=== PATIENT | female | born 1985 | race African-American/Black ===

== ENCOUNTER 2020-06-22 06:44 | Emergency (ER) | payer OTHER, SELFPAY ==
--- NOTE | 2020-06-22 06:48 | ED.URI ---
HPI - URI/Sore Throat General Chief Complaint: Upper Respiratory Symptoms Stated Complaint: sob,cough Time Seen by Provider: 06/22/20 06:48 Source: patient Mode of arrival: ambulatory Limitations: no limitations History of Present Illness MD elicited complaint: fever, cough and rhinorrhea Pertinent past history: other (mom has COVID) Onset (ago): day(s) (4) Consistency: constant Severity: moderate Description of mucous: clear Able to tolerate fluids by mouth: Yes Exacerbating factors: nothing Relieving factors: nothing Context: sick contacts Associated symptoms: fever, chills, headache and cough Treatments prior to arrival: acetaminophen Related Data Previous Rx's Medication Instructions Recorded benzonatate [Tessalon Perles] 100 mg PO TID PRN #20 cap 06/22/20 ibuprofen 600 mg PO Q6H PRN #30 tab 06/22/20 ondansetron 4 mg PO Q8H PRN #20 tab 06/22/20 Allergies Allergy/AdvReac Type Severity Reaction Status Date / Time No Known Allergies Allergy Verified 06/22/20 06:58 Review of Systems Review of Systems: Constitutional : positive Fever, positive Chills, positive fatigue, positive Malaise ENT/Mouth : no sore throat, positive runny nose Eyes: No Discharge Cardiovascular : No Chest Pain, No SOB Respiratory : pos Cough, No Sputum Gastrointestinal : No Nausea, No Vomiting, No Diarrhea Genitourinary : No Dysuria, No Urinary Frequency Musculoskeletal : positive Myalgia Skin : No rash Neuro : pos Headache All other systems reviewed and are negative PMFSH Past Medical History Attestation statement: The following information was validated with the patient. Medical History No active medical problems Social History Social History (Updated 06/22/20 @ 07:12 by Alison Brown DO) Alcohol intake: never Smoking Status: Current every day smoker Smoked in Last 30 Days: Yes Use of substances other than those prescribed or required for medical reasons: No Advance Directives: No Advance Directives Information Provided: No Physical Exam Vital Signs: Vital Signs: Last Vital Signs Temp 98.1 F 06/22/20 06:54 Pulse 56 06/22/20 06:54 Resp 18 06/22/20 06:54 BP 137/65 06/22/20 06:54 Pulse Ox 100 06/22/20 07:12 Body Mass Index 43.5 Appearance: Alert. Oriented X3. No acute distress. Eyes: Pupils equal, round and reactive to light. ENT: Pharynx normal. Neck: Normal inspection. Neck supple. CVS: Normal heart rate and rhythm. Pulses normal. Respiratory: No respiratory distress. Breath sounds clear but dry persistent almost bronchospastic cough Abdomen: Soft and non-tender. Skin: Skin warm and dry. Normal skin color. Normal skin turgor. Extremities: No lower extremity edema. No calf ttp Neuro: Oriented X 3. No motor deficit. No sensory deficit. Course Course Course Narrative: negative COVID but given symptoms and exposure will treat as covid MDM - URI/Sore Throat MDM Narrative Medical decision making narrative: 34 yo female with known COVID exposure now with 4 days of URI, dry hacking cough, 100% on RA at this time will obtain CXR, COVID swab/flu swab, anti tussives, given INH for bronchospastic cough, patient given expectant management at this time for likely COVID Lab Data Labs: Lab Results 06/22/20 Range/Units 07:10 Coronavirus (PCR) NEGATIVE (Negative) Influenza Type A (PCR) NEGATIVE (Negative) Influenza Type B (PCR) NEGATIVE (Negative) RSV RNA Qual (PCR) NEGATIVE (Negative) Discharge Plan Discharge Clinical Impression: COVID-19 Patient Disposition: Home, Self-Care Instructions: COVID-19 (Coronavirus Disease 2019) (ED) Additional Instructions: return to ED for any worsening symptoms or concerns, YOUR TEST WAS NEGATIVE BUT YOUR SYMPTOMS AND EXPOSURE MAKE IT LIKELY THAT YOU HAVE COVID AND YOUR TEST WAS A FALSE NEGATIVE OR IT MIGHT BE TOO EARLY FOR THE TEST TO TURN POSITIVE USE INHALER 2 PUFFS EVERY 4 HOURS NEEDED FOR COUGH OR SHORTNESS OF BREATH Prescriptions: New ibuprofen 600 mg tablet 600 mg PO Q6H PRN (Reason: pain) Qty: 30 RF: 0 ondansetron 4 mg tablet,disintegrating 4 mg PO Q8H PRN (Reason: nausea and vomiting) Qty: 20 RF: 0 benzonatate [Tessalon Perles] 100 mg capsule 100 mg PO TID PRN (Reason: cough) Qty: 20 RF: 0
[2020-06-22 06:54] VITALS: BP 137/65; PULSE 56; RESP 18; TEMP 36.7; O2SAT 100; BMI 43.5
--- NOTE | 2020-06-22 06:58 | XR_ITS ---
EXAMINATION: XR CHEST CLINICAL INFORMATION: Cough COMPARISON: None TECHNIQUE: Frontal view of the chest was obtained. FINDINGS: No significant abnormality is noted involving the heart, lungs, mediastinum, bony thorax or soft tissues. XR/XR chest 1V IMPRESSION: Limited portable technique. No radiographic evidence of acute infiltrates.
[2020-06-22] MEDS: Benzonatate 100 MG CAPSULE 200 MG PO (07:06)
[2020-06-22] MEDS: Ibuprofen 600 MG TABLET PO (07:07)
[2020-06-22] MEDS: HYDROcodone/Homat 5/1.5/5 ML 5 ML SYRUP PO (07:07)
[2020-06-22 07:12] VITALS: PULSE 56; O2SAT 100
--- NOTE | 2020-06-22 07:26 | PC.NURSE ---
Patient presents to ED complaining of cough/SOB/headache since . Mother recently diagnosed with COVID and patient had recent contact. Patient with dry cough but clear lung sounds throughout. O2 sat 100% on room air. Skin PWD. Able to speak in clear and full sentences. Patient medicated with benzonatate, hycodan syrup, and ibuprofen. Tolerated well. Swabbed for respiratory panel. awaiting results and chest xray.
[2020-06-22 08:15] LABS: Influenza A PCR NEGATIVE (Negative); Influenza B PCR NEGATIVE (Negative); Resp Syncy Virus RNA Qual PCR NEGATIVE (Negative); SARS COV2 PCR INHOUSE NEGATIVE (Negative)
--- NOTE | 2020-06-22 08:35 | PC.NURSE ---
Patient asleep on stretcher at this time. Respirations regular and even. Skin PWD. Will allow to rest for some time.
[2020-06-22] MEDS: Albuterol Sulfate 90 MCG 8 GM INHALER 2 PUFF INHALE (08:51)
== END 2020-06-22 09:11 | disposition home or self-care (01) ==
PROVIDERS: Emergency Provider Emergency Medicine
DX: J06.9 Acute upper respiratory infection, unspecified (principal); Z20.828 Contact with and (suspected) exposure to other viral communicable diseases
CPT/HCPCS: 0241U; 71045; 94640; 99283; 99285

== ENCOUNTER 2021-10-23 03:37 | Emergency (ER) | payer OTHER, SELFPAY ==
--- NOTE | ~2021-10-23 | XR_ITS ---
EXAMINATION: XR CHEST CLINICAL INFORMATION: Short of breath COMPARISON: 06/22/2020 TECHNIQUE: Frontal view of the chest was obtained. FINDINGS: The lungs are well expanded. There is no focal consolidation, edema, or effusion. No pneumothorax. The cardiomediastinal silhouette is within normal limits. No acute osseous abnormality. XR/XR chest 1V IMPRESSION: Clear lungs.
--- NOTE | 2021-10-23 03:41 | ECG_ITS ---
Test Reason : chest pain Blood Pressure : / mmHG Vent. Rate : 129 BPM Atrial Rate : 129 BPM P-R Int : 128 ms QRS Dur : 092 ms QT Int : 332 ms P-R-T Axes : 069 001 036 degrees QTc Int : 486 ms Sinus tachycardia with Premature atrial complexes Right atrial enlargement Minimal voltage criteria for LVH, may be normal variant ( [place] product ) Borderline ECG No previous ECGs available Referred By: Generic ED Physician Electronically Signed By:ANATOLIY BORREGO MD
[2021-10-23 03:56] VITALS: BP 210/98; PULSE 103; RESP 22; TEMP 37.3; O2SAT 94; BMI 45.1
[2021-10-23 04:02] VITALS: BP 196/86; RESP 24
[2021-10-23 04:03] LABS: Hematocrit 32.9 % (37.0-47.0); PLT ABN DIST 1
[2021-10-23 04:05] LABS: Hemoglobin 10.2 g/dl (12.0-16.0); Mean Corpuscular Hemoglobin 22.5 pg (27.0-33.0); Mean Corpuscular Volume 72.6 fL (80.0-98.0); Platelet Count 209 X10*3/uL (160-400); Red Blood Count 4.53 X10*6/uL (4.20-5.50); Red Cell Distribution Width 18.3 % (11.0-16.0); WBC ABN SCTR FOR CBC 1
[2021-10-23 04:06] LABS: White Blood Count 6.6 X10*3/uL (4.8-10.8)
[2021-10-23 04:17] LABS: Anion Gap 10 (12-20); Blood Urea Nitrogen 9 mg/dL (9-16); Carbon Dioxide 26 mmol/L (22-29); Chloride 103 mmol/L (96-108); Creatinine Clr Calc Pharmacy 144.7; Estimated Glomerular Filt Rate > 60; Glucose Random 118 mg/dL (60-115); Potassium 3.2 mmol/L (3.3-5.1); Sodium 136 mmol/L (135-145)
[2021-10-23 04:20] LABS: COVID-19 Test Negative (Negative)
[2021-10-23 04:24] LABS: Band Neutrophils Percent 1 % (3-5); Eosinophils Absolute Manual 0.3 X10*3/uL (0.0-0.4); Eosinophils Percent Manual 4 % (0-4); Large Platelet PRESENT; Lymphocytes Absolute Manual 1.5 X10*3/uL (1.2-4.9); Lymphocytes Percent Manual 23 % (20-40); Microcytosis 1+ (5-14) /OIF; Monocytes Absolute Manual 0.2 X10*3/uL (0.1-1.2); Monocytes Percent Manual 3 % (2-11); Neutrophils Absolute Manual 4.6 X10*3/uL (2.0-8.3); Neutrophils Percent Manual 69 % (45-73); Platelet Estimate NORMAL (NORMAL); Platelet Morphology Comment NOTED; RBC Morphology NOTED
[2021-10-23 04:25] LABS: Hypochromasia 2+ (15-30) /OIF; Target Cells 1+ (5-14) /OIF
[2021-10-23 05:33] LABS: Appearance Urine HAZY; Color Urine YELLOW; Glucose Urine UA NEG (NEG); Leukocyte Esterase Urine NEG (NEG); Nitrite Urine NEG (NEG); PH 6.5 (5.0-8.0); Specific Gravity - Urine 1.025 (1.005-1.025); Urine Blood NEG (NEG); Urine Ketones 5 MG/DL (NEG); Urine Protein NEG (NEG-TRACE)
--- NOTE | 2021-10-23 05:34 | ED_ITS ---
HPI - General Adult General Chief complaint: General Medical Stated complaint: difficulty breathing, 2 covid neg tests, cp Time Seen by Provider: 10/23/21 05:12 Source: patient Mode of arrival: ambulatory Limitations: no limitations History of Present Illness HPI narrative: Patient comes to emergency room complaining of 3 days of coughing, runny nose, feeling of fire sensation in the chest. Patient has been taking guaifenesin, last dose approximately 24 hours ago. Patient states that nothing helps. Patient states she has 7 children at home and no one is sick Related Data Previous Rx's Medication Instructions Recorded benzonatate 100 mg capsule 100 mg PO TID PRN #20 cap 06/22/20 (Erma Fair) ibuprofen 600 mg tablet 600 mg PO Q6H PRN #30 tab 06/22/20 ondansetron 4 mg disintegrating 4 mg PO Q8H PRN #20 tab 06/22/20 tablet amlodipine 10 mg tablet 10 mg PO DAILY #30 tab 10/23/21 benzonatate 100 mg capsule 100 mg PO TID PRN #10 cap 10/23/21 Allergies Allergy/AdvReac Type Severity Reaction Status Date / Time No Known Allergies Allergy Verified 06/22/20 06:58 Review of Systems Review of Systems: Constitutional : No Weight loss, No Fever, No Chills, No Night Sweats, complaining of generalized malaise ENT/Mouth : No Hearing loss, No Ear Pain, complaining of nasal congestion, runny nose, no difficulty swallowing Eyes: No Eye Pain, No Swelling, No Redness, No Foreign Body, No Discharge, No Vision Changes Cardiovascular : No Chest Pain, No SOB, No Dyspnea on Exertion, No Orthopnea, No Edema, No Palpitations Respiratory : Complaining of, no wheezing, feels that her chest this stone fire Gastrointestinal : No Nausea, No Vomiting, No Diarrhea, No Constipation, No abdominal Pain, No Hematochezia, No Melena Genitourinary : no irregular bleeding, No Dysuria, No Urinary Frequency, No Hematuria, No Urinary Incontinence, No Urgency, No Flank Pain, No Urinary Flow Changes, No Hesitancy Musculoskeletal : No joint pain, No Myalgias, No Joint Swelling Skin : No Skin Lesions, No rash Neuro : No Weakness, No Numbness, No Paresthesias, No Loss of Consciousness, No Dizziness, No Headache Psych : No Anxiety/Panic, No Depression, No SI/HI/AH/VH, No Social Issues, Heme/Lymph: No Bruising, No Bleeding,No Lymphadenopathy Endocrine : No Polyuria, No Polydipsia, No Temperature Intolerance [facility] Past Medical History Medical History No active medical problems Social History Social History (Updated 06/22/20 @ 07:12 by Alison Brown DO) Alcohol intake: never Advance Directives: No Patient : No Physical Exam ED Vital Signs: Vital Signs - 24 hr 10/23/21 03:56 10/23/21 04:02 10/23/21 06:33 Temperature 99.1 F Pulse Rate 103 H 116 H Respiratory Rate 22 H 24 H 18 Blood Pressure 210/98 H 196/86 H 175/106 H Pulse Oximetry 94 98 BMI result Body Mass Index 45.1 Const Other: Appearance: Alert. Oriented X3. No acute distress. Eyes: Pupils equal, round and reactive to light. ENT: Pharynx normal. Patient inserted to large tissues in each nostril for the runny nose, no epistaxis Neck: Normal inspection. Neck supple. No lymph nodes noted. No crepitus CVS: Normal heart rate and rhythm. Pulses normal. Normal S1 and S2 Respiratory: No respiratory distress. Breath sounds normal. No Wheezing. No rales Abdomen: Soft and nontender. No rigidity. No distention. Skin: Skin warm and dry. Normal skin color. Normal skin turgor. Extremities: No lower extremity edema. No Lacerations. No Rash Neuro: Oriented X 3. No motor deficit. No sensory deficit. Moving all extremities. No slurred speech. CN 2 through 12 grossly intact Psych: calm, cooperative, normal affect Course Course Course Narrative: Patient likely has a viral syndrome. However, it was noted that the patient's blood pressure is high, 1st blood pressure to 110/98, 2nd blood pressure 196/86. Patient states that she has never been diagnosed with hypertension. Patient received 1 dose of labetalol. COVID test was negative D-dimer and troponin negative CXR: clear lungs After 1st dose of labetalol, patient's blood pressure improved to 190 systolic on the left arm, 175/106 on the right arm. Patient's heart rate 116. Patient will be getting another dose of labetalol. Muscle, patient complaining of back pain from coughing so much. Patient received 1 dose of IM Toradol. please f/u BP and HR Medical Decision Making Lab Data Result diagrams: 10/23/21 03:57 10/23/21 03:57 Labs: Lab Results 10/23/21 10/23/21 10/23/21 Range/Units 03:57 03:57 03:57 WBC 6.6 (4.8-10.8) X10*3/uL RBC 4.53 (4.20-5.50) X10*6/uL Hgb 10.2 L (12.0-16.0) g/dl Hct 32.9 L (37.0-47.0) % MCV 72.6 L (80.0-98.0) fL MCH 22.5 L (27.0-33.0) pg MCHC 31.0 (31.0-35.0) g/dl RDW 18.3 H (11.0-16.0) % Plt Count 209 (160-400) X10*3/uL MPV TNP Immature Gran % (Auto) Cancelled Neut % (Auto) Cancelled Lymph % (Auto) Cancelled [place] % (Auto) Cancelled Eos % (Auto) Cancelled Baso % (Auto) Cancelled Lymph # (Auto) Cancelled [place] # (Auto) Cancelled Eos # (Auto) Cancelled Baso # (Auto) Cancelled Abs Immat Gran (auto) Cancelled Absolute Neuts (auto) Cancelled Absolute Nucleated RBC 0.000 (0.0-0.012) X10*3/uL Nucleated RBC % (auto) 0.0 (0.0-0.2) /100WBC Neutrophils % (Manual) 69 (45-73) % Band Neutrophils % 1 L (3-5) % Lymphocytes % (Manual) 23 (20-40) % Monocytes % (Manual) 3 (2-11) % Eosinophils % (Manual) 4 (0-4) % Abs Neuts (Manual) 4.6 (2.0-8.3) X10*3/uL Lymphocytes # (Manual) 1.5 (1.2-4.9) X10*3/uL Monocytes # (Manual) 0.2 (0.1-1.2) X10*3/uL Eosinophils # (Manual) 0.3 (0.0-0.4) X10*3/uL Platelet Estimate NORMAL (NORMAL) Large Platelets PRESENT Plt Morphology Comment NOTED RBC Morphology NOTED Hypochromasia 2+ (15-30) /OIF Microcytosis 1+ (5-14) /OIF Target Cells 1+ (5-14) /OIF D-Dimer High Sensitivty NG/ML Sodium 136 (135-145) mmol/L Potassium 3.2 L (3.3-5.1) mmol/L Chloride 103 (96-108) mmol/L Carbon Dioxide 26 (22-29) mmol/L Anion Gap 10 L (12-20) BUN 9 (9-16) mg/dL Creatinine 0.74 (0.5-1.4) mg/dL Estim Creat Clear Calc 144.7 Estimated GFR > 60 Random Glucose 118 H (60-115) mg/dL Calcium 9.0 (8.4-10.2) mg/dL Troponin I High Sens (<3.5-17.0) ng/L Urine Color Urine Appearance Urine pH (5.0-8.0) Ur Specific [place] (1.005-1.025) Urine Protein (NEG-TRACE) MG/DL Urine Glucose (UA) (NEG) MG/DL Urine Ketones (NEG) MG/DL Urine Blood (NEG) Urine Nitrite (NEG) Ur Leukocyte Esterase (NEG) Urine Test (NEGATIVE) COVID-19 (URIEL) Negative (Negative) COVID-19 Clin Com See Note 10/23/21 10/23/21 10/23/21 Range/Units 03:57 05:24 05:24 WBC (4.8-10.8) X10*3/uL RBC (4.20-5.50) X10*6/uL Hgb (12.0-16.0) g/dl Hct (37.0-47.0) % MCV (80.0-98.0) fL MCH (27.0-33.0) pg MCHC (31.0-35.0) g/dl RDW (11.0-16.0) % Plt Count (160-400) X10*3/uL MPV Immature Gran % (Auto) Neut % (Auto) Lymph % (Auto) [place] % (Auto) Eos % (Auto) Baso % (Auto) Lymph # (Auto) [place] # (Auto) Eos # (Auto) Baso # (Auto) Abs Immat Gran (auto) Absolute Neuts (auto) Absolute Nucleated RBC (0.0-0.012) X10*3/uL Nucleated RBC % (auto) (0.0-0.2) /100WBC Neutrophils % (Manual) (45-73) % Band Neutrophils % (3-5) % Lymphocytes % (Manual) (20-40) % Monocytes % (Manual) (2-11) % Eosinophils % (Manual) (0-4) % Abs Neuts (Manual) (2.0-8.3) X10*3/uL Lymphocytes # (Manual) (1.2-4.9) X10*3/uL Monocytes # (Manual) (0.1-1.2) X10*3/uL Eosinophils # (Manual) (0.0-0.4) X10*3/uL Platelet Estimate (NORMAL) Large Platelets Plt Morphology Comment RBC Morphology Hypochromasia /OIF Microcytosis /OIF Target Cells /OIF D-Dimer High Sensitivty NG/ML Sodium (135-145) mmol/L Potassium (3.3-5.1) mmol/L Chloride (96-108) mmol/L Carbon Dioxide (22-29) mmol/L Anion Gap (12-20) BUN (9-16) mg/dL Creatinine (0.5-1.4) mg/dL Estim Creat Clear Calc Estimated GFR Random Glucose (60-115) mg/dL Calcium (8.4-10.2) mg/dL Troponin I High Sens < 3.5 (<3.5-17.0) ng/L Urine Color YELLOW Urine Appearance HAZY Urine pH 6.5 (5.0-8.0) Ur Specific [place] 1.025 (1.005-1.025) Urine Protein NEG (NEG-TRACE) MG/DL Urine Glucose (UA) NEG (NEG) MG/DL Urine Ketones 5 (NEG) MG/DL Urine Blood NEG (NEG) Urine Nitrite NEG (NEG) Ur Leukocyte Esterase NEG (NEG) Urine Test NEGATIVE (NEGATIVE) COVID-19 (URIEL) (Negative) COVID-19 Clin Com 10/23/21 Range/Units 05:47 WBC (4.8-10.8) X10*3/uL RBC (4.20-5.50) X10*6/uL Hgb (12.0-16.0) g/dl Hct (37.0-47.0) % MCV (80.0-98.0) fL MCH (27.0-33.0) pg MCHC (31.0-35.0) g/dl RDW (11.0-16.0) % Plt Count (160-400) X10*3/uL MPV Immature Gran % (Auto) Neut % (Auto) Lymph % (Auto) [place] % (Auto) Eos % (Auto) Baso % (Auto) Lymph # (Auto) [place] # (Auto) Eos # (Auto) Baso # (Auto) Abs Immat Gran (auto) Absolute Neuts (auto) Absolute Nucleated RBC (0.0-0.012) X10*3/uL Nucleated RBC % (auto) (0.0-0.2) /100WBC Neutrophils % (Manual) (45-73) % Band Neutrophils % (3-5) % Lymphocytes % (Manual) (20-40) % Monocytes % (Manual) (2-11) % Eosinophils % (Manual) (0-4) % Abs Neuts (Manual) (2.0-8.3) X10*3/uL Lymphocytes # (Manual) (1.2-4.9) X10*3/uL Monocytes # (Manual) (0.1-1.2) X10*3/uL Eosinophils # (Manual) (0.0-0.4) X10*3/uL Platelet Estimate (NORMAL) Large Platelets Plt Morphology Comment RBC Morphology Hypochromasia /OIF Microcytosis /OIF Target Cells /OIF D-Dimer High Sensitivty 172 NG/ML Sodium (135-145) mmol/L Potassium (3.3-5.1) mmol/L Chloride (96-108) mmol/L Carbon Dioxide (22-29) mmol/L Anion Gap (12-20) BUN (9-16) mg/dL Creatinine (0.5-1.4) mg/dL Estim Creat Clear Calc Estimated GFR Random Glucose (60-115) mg/dL Calcium (8.4-10.2) mg/dL Troponin I High Sens (<3.5-17.0) ng/L Urine Color Urine Appearance Urine pH (5.0-8.0) Ur Specific [place] (1.005-1.025) Urine Protein (NEG-TRACE) MG/DL Urine Glucose (UA) (NEG) MG/DL Urine Ketones (NEG) MG/DL Urine Blood (NEG) Urine Nitrite (NEG) Ur Leukocyte Esterase (NEG) Urine Test (NEGATIVE) COVID-19 (URIEL) (Negative) COVID-19 Clin Com Imaging Data Chest x-ray: Radiologist's impression: FINDINGS: The lungs are well expanded. There is no focal consolidation, edema, or effusion. No pneumothorax. The cardiomediastinal silhouette is within normal limits. No acute osseous abnormality. XR/XR chest 1V IMPRESSION: Clear lungs. Discharge Plan Discharge Clinical Impression: Acute bronchitis, viral, Hypertension Patient Disposition: Still a Patient Instructions: Acute Bronchitis (ED), Hypertension (ED) Additional Instructions: Please follow-up with your primary care physician tomorrow. If you have any worsening or new symptoms, please return to the emergency room or call 911 Prescriptions: New amlodipine 10 mg tablet 10 mg PO DAILY Qty: 30 0RF benzonatate 100 mg capsule 100 mg PO TID PRN (Reason: cough) Qty: 10 0RF No Action ibuprofen 600 mg tablet 600 mg PO Q6H PRN (Reason: pain) Qty: 30 0RF ondansetron 4 mg tablet,disintegrating 4 mg PO Q8H PRN (Reason: nausea and vomiting) Qty: 20 0RF benzonatate [Tessalon Perles] 100 mg capsule 100 mg PO TID PRN (Reason: cough) Qty: 20 0RF
[2021-10-23 05:35] LABS: UPreg QC Valid YES; Urine Pregnancy NEGATIVE (NEGATIVE)
[2021-10-23] MEDS: Labetalol HCL 100 MG TABLET PO ×2 (05:41→06:40)
[2021-10-23 05:58] LABS: Troponin-I High Sensitivity < 3.5 ng/L (<3.5-17.0)
[2021-10-23 05:58] LABS: D Dimer High Sensitivity 172 NG/ML
[2021-10-23 06:33] VITALS: BP 175/106; PULSE 116; RESP 18; O2SAT 98
[2021-10-23] MEDS: Ketorolac Tromethamine 60 MG/2 ML VIAL IM (06:39)
[2021-10-23] MEDS: Benzonatate 100 MG CAPSULE 200 MG PO (06:39)
[2021-10-23] MEDS: Potassium Chloride Packet 20 MEQ PACKET PO (07:19)
--- NOTE | 2021-10-23 07:24 | PC.NURSE ---
care assumed for this patient. pt reports not feeling any better- states she is very congested/ coughing a lot. requesting to see the md for test results.
[2021-10-23 07:49] VITALS: BP 156/87; PULSE 120; RESP 20; TEMP 36.2; O2SAT 100
== END 2021-10-23 08:17 | disposition still patient (30) ==
PROVIDERS: Emergency Medicine; Emergency Provider Emergency Medicine Emergency Medical Services
DX: J20.8 Acute bronchitis due to other specified organisms (principal); I10 Essential (primary) hypertension; R06.02 Shortness of breath; R05.9 Cough, unspecified; Z20.822 Contact with and (suspected) exposure to COVID-19; Z79.899 Other long term (current) drug therapy
CPT/HCPCS: 36415; 71045; 80048; 81003; 81025; 84484; 85007; 85027; 85379; 87635; 93005; 96372; 99284; J1885

== ENCOUNTER 2023-05-15 05:44 | Emergency (ER) | payer OTHER, SELFPAY ==
--- NOTE | ~2023-05-15 | XR_ITS ---
EXAMINATION: XR SHOULDER, LEFT CLINICAL INFORMATION: Fall. Pain. COMPARISON: Chest x-ray dated 10/23/2021 and 06/22/2020. TECHNIQUE: Three views of the left shoulder. FINDINGS: There is subtle amorphous irregularity seen adjacent to the lateral humeral neck and greater tuberosity, of uncertain etiology, possibly representing focal calcification within the rotator cuff tendons versus focal periosteal reaction. No definite cortical break in the underlying bone is seen, though evaluation is limited due to slightly nonstandard positioning and suboptimal technique on some of the images. The glenohumeral joint and acromion clavicular joint remain intact. The visualized left clavicle, left ribs and left scapula are intact. XR/XR shoulder LT min 2V IMPRESSION: * No definite acute fracture or dislocation, though evaluation is limited. If clinical suspicion for a shoulder fracture remains high, consider CT scan versus short interval follow-up left shoulder x-ray. * Subtle amorphous irregularity seen adjacent to the lateral humeral neck and greater tuberosity, of uncertain etiology. This may represent focal calcification within the rotator cuff tendons versus focal periosteal reaction.
[2023-05-15 05:45] VITALS: BP 171/102; PULSE 112; RESP 16; TEMP 36.3; O2SAT 100; BMI 51.9
--- NOTE | 2023-05-15 07:29 | ED.EXTPRO ---
HPI - Extremity Problem General Chief complaint: Extremity Injury, Upper Stated complaint: L shoulder pain Time Seen by Provider: 05/15/23 06:35 Source: patient Mode of arrival: ambulatory Limitations: no limitations History of Present Illness HPI Narrative: This is a 37-year-old female who is right-hand dominant who has no known medical history presents to the ER with complaints of left shoulder pain after a fall which occurred at 03:00. Patient reports that she went to step over a baby gate when she lost her balance falling landing on her left shoulder. Patient reports since then she has pain in her left shoulder, limited range of motion of the left shoulder and tingling in her left hand. She denies hitting her head or loss of consciousness. She denies any headache, neck pain, back pain, chest pain, abdominal pain, vomiting or vision changes. Related Data Previous Rx's Medication Instructions Recorded benzonatate 100 mg capsule 100 mg PO TID PRN cough #20 caps 06/22/20 (Erma Fair) ibuprofen 600 mg tablet 600 mg PO Q6H PRN pain #30 tabs 06/22/20 ondansetron 4 mg disintegrating 4 mg PO Q8H PRN nausea and 06/22/20 tablet vomiting #20 tabs amlodipine 10 mg tablet 10 mg PO DAILY #30 tabs 10/23/21 benzonatate 100 mg capsule 100 mg PO TID PRN cough #10 caps 10/23/21 ibuprofen 800 mg tablet 800 mg PO Q8H PRN pain #30 tabs 05/15/23 oxycodone 5 mg tablet 5 mg PO Q8H PRN pain #6 tabs 05/15/23 Allergies Allergy/AdvReac Type Severity Reaction Status Date / Time No Known Allergies Allergy Verified 06/22/20 06:58 Review of Systems Review of Systems: Yes all other systems are reviewed and are negative Constitutional: Constitutional: Reports no additional constitutional complaints, Denies body ache(s), Denies chills, Denies fever(s), Denies headache(s) and Denies weakness Eyes: Eyes: Reports no additional eye complaints and Denies change in vision ENT: Reports system reviewed and no additional complaints, except as documented, Denies dizziness, Denies headache(s), Denies nasal congestion, Denies nasal discharge and Denies neck pain Cardiovascular: Cardiovascular: Reports no additional cardiovascular complaints, Denies chest pain, Denies leg edema and Denies dyspnea Respiratory: Respiratory: Reports no additional respiratory complaints, Denies cough and Denies dyspnea Gastrointestinal: Gastrointestinal: Reports no additional gastrointestinal complaints, Denies abdominal pain, Denies diarrhea, Denies nausea and Denies vomiting Genitourinary: Genitourinary: Reports no additional female genitourinary complaints and Denies urinary incontinence Musculoskeletal: Musculoskeletal: Reports no additional musculoskeletal complaints, Denies back pain, Reports arthralgias, Reports joint swelling, Denies neck pain, Denies numbness and Reports tingling Integumentary/Breasts: Skin/Breast: Reports system reviewed and no additional complaints, except as docu and Denies rash Neurologic: Reports system reviewed and no additional complaints, except as documented, Denies Abnormal speech present, Denies dizziness, Denies headache(s), Denies numbness, Reports tingling and Denies weakness PMFSH Past Medical History Attestation statement: The following information was validated with the patient. Source: old records reviewed and nursing notes reviewed Medical History No active medical problems Social History Social History Alcohol intake: current Alcohol intake frequency: a few times a month Smoked in Last 30 Days: Yes Use of substances other than those prescribed or required for medical reasons: No Advance Directives: No Advance Directives Information Provided: Yes Physical Exam Vital Signs: Vital Signs: Last Vital Signs Temp 97.4 F 05/15/23 05:45 Pulse 96 05/15/23 07:41 Resp 16 05/15/23 07:41 BP 169/94 H 05/15/23 07:41 Pulse Ox 94 05/15/23 07:41 O2 Del Method Room Air 05/15/23 07:41 BMI result Body Mass Index 51.9 Const: General: cooperative, healthy appearing, comfortable and no acute distress Orientation/consciousness: patient oriented x3 Limitations: no limitations HEENT: Head: Yes normal to inspection Ears: hearing grossly normal bilaterally General nose exam: Normal external nose present Face and sinus: Yes normal facial exam Mouth: Normal oral and palatal mucosa present Throat: Yes posterior oropharynx normal Eyes: General: appearance normal, both eyes and all related structures Pupils: Equal, round and reactive pupils present Neck: Neck: Yes normal visual inspection Chest: Chest palpation & inspection: normal inspection of the chest Resp: Effort & Inspection: normal respiratory effort Auscultation: clear to auscultation bilaterally Cardio: Rate: regular rate Rhythm: regular rhythm Peripheral pulses: Peripheral pulses 2+ throughout GI: Inspection: Yes normal to inspection Palpation (GI): Soft to palpation and nontender Auscultation: normal bowel sounds Back/Spine/Pelvis: Thoracic/Lumbar Spine: thoracic and lumbar spine normal to inspection Skin: General skin exam: no rashes or lesions noted Neuro: General: patient oriented x3, no focal motor deficits and normal sensation to monofilament Cranial nerves: Yes Equal, round and reactive pupils present Cognition (Neuro): normal cognition Speech: No Abnormal speech present Gait exam (Neuro): Normal gait present Motor exam (neuro): 5/5 motor strength present throughout Extrem: Other: There is pain on palpation to the left proximal humerus and the distal clavicle. There is no obvious deformity or swelling noted. There is limited active range motion due to pain. Patient has no tenderness on palpation over the left elbow, forearm, hand or wrist with full active and passive range of motion of these extremities. She has normal radial and ulnar pulses. She has normal distal sensation. General: Yes normal to inspection Course Course Course Narrative: X-ray show IMPRESSION: * No definite acute fracture or dislocation, though evaluation is limited. If clinical suspicion for a shoulder fracture remains high, consider CT scan versus short interval follow-up left shoulder x-ray. * Subtle amorphous irregularity seen adjacent to the lateral humeral neck and greater tuberosity, of uncertain etiology. This may represent focal calcification within the rotator cuff tendons versus focal periosteal reaction. Clinically I do not feel the patient has a dislocation that she does have some range of motion although it is painful. She has no deformity or swelling on exam suggest dislocation. She may have a rotator cuff injury which are reviewed with her. I did recommend that she has a sling we will send her home with analgesia. I do recommend that she follow up with Orthopedics appears to. Reviewed worrisome signs and symptoms of when to return to the emergency room. Comfortable plan for discharge home for Medications Administered Discontinued Medications Generic Name Dose Route Start Last Admin Trade Name Freq PRN Reason Stop Dose Admin Acetaminophen 975 mg 05/15/23 07:28 05/15/23 08:00 Acetaminophen 325 Mg Tablet PO 05/15/23 07:29 975 mg ONCE ONE Administration Oxycodone HCl 5 mg 05/15/23 07:28 05/15/23 08:00 Oxycodone Hcl Immed Release 5 Mg Tablet PO 05/15/23 07:29 5 mg ONCE ONE Administration Medical Decision Making Medical Decision Making [facility] Narrative: This is a 37-year-old female who is right-hand dominant who has no known medical history presents to the ER with complaints of left shoulder pain after a fall which occurred at 03:00.? Patient reports that she went to step over a baby gate when she lost her balance falling landing on her left shoulder.? Patient reports since then she has pain in her left shoulder, limited range of motion of the left shoulder and tingling in her left hand.? She denies hitting her head or loss of consciousness.? She denies any headache, neck pain, back pain, chest pain, abdominal pain, vomiting or vision changes. There is pain on palpation to the left proximal humerus and the distal clavicle.? There is no obvious deformity or swelling noted.? There is limited active range motion due to pain.? Patient has no tenderness on palpation over the left elbow, forearm, hand or wrist with full active and passive range of motion of these extremities.? She has normal radial and ulnar pulses.? She has normal distal sensation. -will obtain x-ray, provide analgesia Differential Diagnosis Differential Diagnoses: The differential diagnosis associated with the presentation includes Fracture, dislocation, contusion Low concern for vascular injury Admission/Observation Consideration of admission/observation: Escalation of care including admission/observation considered Low concern for dislocation, complicated fracture, vascular injury necessitating advanced imaging, orthopedic consultation emergently and or intervention Independent Interpretation I performed an independent interpretation of an: Plain X-Ray Interpretation: I independently reviewed the x-ray and agree with the radiology report Radiology Impression Discussion of test interpretation with radiology: I have reviewed the radiologist's reading. Radiologist Impression: Launch?Image [address] [address] XRay Report Signed Patient: Yesenia Esteves MR#: [id number] : 1985 Acct:[id number] Age/Sex: 37 / F ADM Date: 05/15/23 Loc: HO.ED Attending Dr: Ordering Physician: Tim Perry MD Date of Service: 05/15/23 Procedure(s): XR shoulder LT min 2V Accession Number(s): [id number] cc: Physician,None ; Tim Perry MD~ EXAMINATION: XR SHOULDER, LEFT CLINICAL INFORMATION: Fall. Pain. COMPARISON: Chest x-ray dated 10/23/2021 and 06/22/2020. TECHNIQUE: Three views of the left shoulder. FINDINGS: There is subtle amorphous irregularity seen adjacent to the lateral humeral neck and greater tuberosity, of uncertain etiology, possibly representing focal calcification within the rotator cuff tendons versus focal periosteal reaction. No definite cortical break in the underlying bone is seen, though evaluation is limited due to slightly nonstandard positioning and suboptimal technique on some of the images. The glenohumeral joint and acromion clavicular joint remain intact. The visualized left clavicle, left ribs and left scapula are intact. XR/XR shoulder LT min 2V IMPRESSION: * No definite acute fracture or dislocation, though evaluation is limited. If clinical suspicion for a shoulder fracture remains high, consider CT scan versus short interval follow-up left shoulder x-ray. * Subtle amorphous irregularity seen adjacent to the lateral humeral neck and greater tuberosity, of uncertain etiology. This may represent focal calcification within the rotator cuff tendons versus focal periosteal reaction. Independent Historian Clinical information obtained from an independent historian. History obtained from or confirmed by: Friend Tests considered The following testing was considered but not selected: Low concern for dislocation, complicated fracture, vascular injury requiring CT imaging Prescription Management I considered prescription management with: Pain Medication Procedures Orthopedic Splinting/Casting Injury #1: Side: left Upper Extremity Injury Location: shoulder Upper Extremity Immobilizer: sling/shoulder immobilizer Discharge Plan Discharge Clinical Impression: Left shoulder strain Patient Disposition: Home, Self-Care Instructions: Muscle Strain (ED), Rotator Cuff Injury Exercises (DC) Additional Instructions: We do not see any fracture or dislocation on the x-ray of your shoulder. The x-ray shows a may have strained rotator cuff. Please use the sling for discomfort. Removed the arm frequently and perform gentle range of motion. Apply ice to the shoulder as tolerated. Take the medications as prescribed. Call Orthopedics to follow Prescriptions: New ibuprofen 800 mg tablet 800 mg PO Q8H PRN (Reason: pain) Qty: 30 0RF oxycodone 5 mg tablet 5 mg PO Q8H PRN (Reason: pain) Qty: 6 0RF Rx Instructions: Partial Fill upon patient request. No Action ibuprofen 600 mg tablet 600 mg PO Q6H PRN (Reason: pain) Qty: 30 0RF ondansetron 4 mg tablet,disintegrating 4 mg PO Q8H PRN (Reason: nausea and vomiting) Qty: 20 0RF benzonatate [Tessalon Perles] 100 mg capsule 100 mg PO TID PRN (Reason: cough) Qty: 20 0RF amlodipine 10 mg tablet 10 mg PO DAILY Qty: 30 0RF benzonatate 100 mg capsule 100 mg PO TID PRN (Reason: cough) Qty: 10 0RF Referrals: [facility] [place] [facility] Surgeons [Provider Group] - 1 week
[2023-05-15 07:41] VITALS: BP 169/94; PULSE 96; RESP 16; O2SAT 94
[2023-05-15] MEDS: oxyCODONE HCl Immed Release 5 MG TABLET PO (08:00)
[2023-05-15] MEDS: Acetaminophen 325 MG TABLET 975 MG PO (08:00)
== END 2023-05-15 08:30 | disposition home or self-care (01) ==
PROVIDERS: Emergency Provider Emergency Medicine Emergency Medical Services
DX: S46.912A Strain of unspecified muscle, fascia and tendon at shoulder and upper arm level, left arm, initial encounter (principal); W01.198A Fall on same level from slipping, tripping and stumbling with subsequent striking against other object, initial encounter; Y93.89 Activity, other specified; Y92.019 Unspecified place in single-family (private) house as the place of occurrence of the external cause; Y99.9 Unspecified external cause status
CPT/HCPCS: 73030; 99283; 99284

== ENCOUNTER 2024-02-09 20:29 | Emergency (ER) | payer OTHER, SELFPAY ==
--- NOTE | 2024-02-09 | ECG_ITS ---
Test Reason : sob Blood Pressure : / mmHG Vent. Rate : 111 BPM Atrial Rate : 111 BPM P-R Int : 136 ms QRS Dur : 098 ms QT Int : 368 ms P-R-T Axes : 061 -10 053 degrees QTc Int : 500 ms Sinus tachycardia with Premature atrial complexes Right atrial enlargement Moderate voltage criteria for LVH, may be normal variant ( R in aVL , Fracisco product ) Borderline ECG When compared with ECG of 23-OCT-2021 03:46, No significant change was found Referred By: Generic ED Physician Electronically Signed By:ANATOLIY BORREGO MD
--- NOTE | ~2024-02-09 | CT_ITS ---
EXAMINATION: CT HEAD WITHOUT CONTRAST CLINICAL INFORMATION: Headache. Hypertension. COMPARISON: None available. TECHNIQUE: Contiguous axial imaging was performed from the skull base to vertex without intravenous administration of contrast. This CT examination was performed using dose optimization techniques as appropriate, variously including the following: *Automated exposure control *Adjustment of mA and/or kV according to patient size (this includes techniques or standardized protocols for targeted exams where dose is matched to indication/reason for exam; i.e. extremities or head) *Use of iterative reconstruction technique DLP: 648 mGy-cm FINDINGS: The lateral, third and fourth ventricles are normally outlined. The cortical sulci and basal cisterns are normally outlined as well. There is no acute territorial defect, hemorrhage or midline shift. The extra-axial spaces are unremarkable. Calvarium/scalp: Intact. Maxillofacial sinuses and mastoids: Clear as visualized. CT/CT head/brain wo IV con IMPRESSION: No acute intracranial pathology.
--- NOTE | ~2024-02-09 | XR_ITS ---
EXAMINATION: PORTABLE CHEST 1 VIEW CLINICAL INFORMATION: Dyspnea. COMPARISON: 10/23/2021. TECHNIQUE: Portable frontal view of the chest was obtained. FINDINGS: Lungs are hypoexpanded with mild asymmetric elevation of the right hemidiaphragm again noted. Minimal increased basilar markings on the right more likely due to atelectasis. No superimposed focal infiltrate, effusion, edema, or pneumothorax. Cardiac silhouette is mildly prominent for this portable technique. No acute bony abnormality seen. XR/XR chest 1V IMPRESSION: Hypoexpanded with minimal increased basilar markings more likely due to atelectasis.
[2024-02-09 21:05] VITALS: BP 222/109; PULSE 90; RESP 22; TEMP 37.2; O2SAT 93; BMI 44.3
--- NOTE | 2024-02-09 21:31 | ED_ITS ---
HPI - General Adult General Chief complaint: Dyspnea Stated complaint: sob congested cough Time Seen by Provider: 02/09/24 21:21 Source: patient Mode of arrival: ambulatory Limitations: no limitations History of Present Illness ED Provider: didier TUCKER narrative: Patient is a 38-year-old female with no reported medical history presenting to the emergency department with complaint of nonproductive cough for the past 3 days. States she is having frequent coughing episodes and associated chest pain with coughing. Also reports headache, nasal congestion, shortness of breath. Denies abdominal pain, nausea, vomiting or diarrhea. Denies sore throat. Denies history of HTN and is not on any antihypertensive medication. States she last saw her former PCP 1.5-2 months ago and BP was normal at that time, has never been told she has high blood pressure. Denies vision changes, dizziness, lightheadedness. MD complaint: cough, headache Onset (ago): day(s) Related Data Previous Rx's ?Medication ?Instructions ?Recorded benzonatate 100 mg capsule 100 mg PO TID PRN cough #20 caps 06/22/20 (Erma Fair) ibuprofen 600 mg tablet 600 mg PO Q6H PRN pain #30 tabs 06/22/20 ondansetron 4 mg disintegrating 4 mg PO Q8H PRN nausea and 06/22/20 tablet vomiting #20 tabs amlodipine 10 mg tablet 10 mg PO DAILY #30 tabs 10/23/21 benzonatate 100 mg capsule 100 mg PO TID PRN cough #10 caps 10/23/21 ibuprofen 800 mg tablet 800 mg PO Q8H PRN pain #30 tabs 05/15/23 oxycodone 5 mg tablet 5 mg PO Q8H PRN pain #6 tabs 05/15/23 albuterol sulfate 90 mcg/actuation 2 puff inhalation Q4-6H PRN 02/10/24 aerosol inhaler shortness of breath or wheezing #6.7 grams losartan 50 mg tablet 50 mg PO DAILY #30 tabs 02/10/24 prednisone 20 mg tablet 40 mg (2 x 20 mg) PO DAILY #10 tabs 02/10/24 Allergies Allergy/AdvReac Type Severity Reaction Status Date / Time No Known Allergies Allergy Verified 02/09/24 21:08 Review of Systems Review of Systems: As per HPI. Yes all other systems are reviewed and are negative Constitutional: Constitutional: Reports as per [facility] Past Medical History Medical History No active medical problems Social History Social History Alcohol intake: current Alcohol intake frequency: a few times a month Smoked in Last 30 Days: Yes Advance Directives: No Advance Directives Information Provided: No Physical Exam ED Vital Signs: Vital Signs - 24 hr 02/09/24 21:05 02/09/24 22:02 02/09/24 22:07 Temperature 99.0 F Pulse Rate 90 89 88 Respiratory Rate 22 H 18 Blood Pressure 222/109 H 196/130 H Pulse Oximetry 93 98 Oxygen Delivery Method Room Air Room Air 02/09/24 22:41 02/10/24 00:04 02/10/24 01:12 Temperature Pulse Rate 120 H 117 H Respiratory Rate 24 H Blood Pressure 196/130 H 207/128 H 185/118 H Pulse Oximetry 100 Oxygen Delivery Method 02/10/24 01:58 02/10/24 02:00 02/10/24 02:19 Temperature 98.7 F Pulse Rate 99 Respiratory Rate 20 Blood Pressure 183/105 H 160/79 H 160/79 H Pulse Oximetry 98 Oxygen Delivery Method Room Air 02/10/24 03:31 Temperature 98.8 F Pulse Rate 97 Respiratory Rate 20 Blood Pressure 160/95 H Pulse Oximetry 97 Oxygen Delivery Method Room Air BMI result Body Mass Index 44.3 Vital signs have been reviewed and appear to be correct. Blood pressure elevated. Heart rate normal initially, tachycardic after breathing treatment. Respiratory rate normal. Temperature normal. Oxygen saturation normal. Const General: cooperative and no acute distress Orientation/consciousness: oriented to person, oriented to place, oriented to time and patient oriented x3 Limitations: no limitations HENMT Head: Yes normocephalic and Yes atraumatic Ears: external ears normal General nose exam: Normal external nose present Face and sinus: Yes face symmetric Mouth: oropharynx normal and moist mucous membranes Throat: Yes uvula midline Eyes Pupils: Equal, round and reactive pupils present Neck Neck: Yes normal visual inspection and Yes supple Resp Effort & Inspection: normal respiratory effort, able to speak in complete sentences, Actively coughing Quality: dry, no retractions and no use of accessory muscles Auscultation: clear to auscultation bilaterally and diminished lung sounds bilateral Cardio Rate: regular rate Rhythm: regular rhythm Heart sounds: S1 normal heart sound present and S2 normal heart sound present GI Palpation (GI): Soft to palpation and nontender Auscultation: normoactive bowel sounds General: Yes no CVA tenderness Back/Spine/Pelvis Back: no CVA tenderness Skin General skin exam: elasticity normal and turgor normal Neuro General: oriented to person, oriented to place, oriented to time, patient oriented x3, moves all extremities, no focal motor deficits and CN's II-XI intact bilaterally Cranial nerves: Yes Equal, round and reactive pupils present Cognition (Neuro): normal cognition Extrem General: Yes full ROM, Yes no pedal edema and Yes no calf tenderness Psych Mental Status: mental status grossly normal Affect: normal affect Thought process: Normal thought process present Medications Administered Discontinued Medications Generic Name Dose Route Start Last Admin Trade Name Freq PRN Reason Stop Dose Admin Acetaminophen 975 mg 02/10/24 00:25 02/10/24 00:32 Acetaminophen 325 Mg Tablet PO 02/10/24 00:26 975 mg ONCE ONE Administration Albuterol Sulfate 2.5 mg/ 5 mg 02/09/24 22:00 02/09/24 22:05 Albuterol Sulfate 2.5 mg INHALE 02/09/24 22:01 5 mg ONCE ONE Administration Amlodipine Besylate 5 mg 02/09/24 22:34 02/09/24 22:41 Amlodipine Besylate 5 Mg Tablet PO 02/09/24 22:35 5 mg ONCE ONE Administration Protocol Amlodipine Besylate 5 mg 02/10/24 01:02 02/10/24 01:12 Amlodipine Besylate 5 Mg Tablet PO 02/10/24 01:03 5 mg ONCE ONE Administration Protocol Benzonatate 100 mg 02/09/24 23:29 02/09/24 23:59 Benzonatate 100 Mg Capsule PO 02/09/24 23:30 100 mg ONCE ONE Administration Guaifenesin/Codeine Phosphate 10 ml 02/10/24 00:25 02/10/24 00:33 Guaifen/Codeine Sf 200/20/10ml 10 Ml Liquid PO 02/10/24 00:26 10 ml ONCE ONE Administration Ibuprofen 600 mg 02/10/24 00:25 02/10/24 00:33 Ibuprofen 600 Mg Tablet PO 02/10/24 00:26 600 mg ONCE ONE Administration Labetalol HCl 100 mg 02/10/24 01:02 02/10/24 01:12 Labetalol Hcl 100 Mg Tablet PO 02/10/24 01:03 100 mg ONCE ONE Administration Protocol Labetalol HCl 100 mg 02/10/24 01:58 02/10/24 02:19 Labetalol Hcl 100 Mg Tablet PO 02/10/24 01:59 Not Given ONCE ONE Protocol Medical Decision Making Medical Decision Making [facility] Narrative: Patient is a 38-year-old female with no reported medical history presenting to the emergency department with complaint of nonproductive cough for the past 3 days. On exam patient is awake, A+Ox3, hypertensive and at times tachycardic, VS otherwise WNL, afebrile, normal neurological exam without focal deficits, physical exam findings as above. Given reported symptoms and physical exam findings, initial differential includes viral illness, bronchitis pneumonia. Given headache and significantly elevated blood pressures, some concern for ICH. Viral serology and strep negative. X-ray chest notable for no evidence of pneumonia. My interpretation is in agreement with the radiologist's interpretation. Patient medicated with amlodipine with minimal change in BP. M edicated with additional dose of amlodipine as well as labetolol. CT head ordered. Patient signed out to Dr. Bates pending results of CT head and recheck of blood pressure. I received sign-out from nurse practitioner Sinan, patient's blood pressure improved. -CT scan: No intracranial bleed The lateral, third and fourth ventricles are normally outlined. The cortical sulci and basal cisterns are normally outlined as well. There is no acute territorial defect, hemorrhage or midline shift. The extra-axial spaces are unremarkable. Calvarium/scalp: Intact. Maxillofacial sinuses and mastoids: Clear as visualized. CT/CT head/brain wo IV con IMPRESSION: No acute intracranial pathology. Differential Diagnosis Differential Diagnoses: The differential diagnosis associated with the presentation includes As per [facility] Admission/Observation Consideration of admission/observation: Escalation of care including admission/observation considered Dependent upon results of CT head Lab Data [facility] Lab Attestation statement: I reviewed the patient's lab results. As per [facility] Labs: Lab Results 02/09/24 Range/Units 21:27 Influenza Type A (PCR) NEGATIVE (Negative) Influenza Type B (PCR) NEGATIVE (Negative) RSV RNA Qual (PCR) NEGATIVE (Negative) SARS-CoV-2 RNA (RT-PCR) NEGATIVE (Negative) S. pyogenes GrpA ZEESHAN Negative (Negative) Independent Interpretation I performed an independent interpretation of an: Plain X-Ray Radiology Impression Discussion of test interpretation with radiology: I have reviewed the radiologist's reading. Radiologist Impression: XR/XR chest 1V IMPRESSION: Hypoexpanded with minimal increased basilar markings more likely due to atelectasis. External Record Review External record reviewed: Inpatient record, Office record and Outpatient record Discharge Plan Discharge Clinical Impression: Cough, Upper respiratory virus, Hypertension Patient Disposition: Home, Self-Care Instructions: How to Take a Blood Pressure (ED), Upper Respiratory Infection (DC), Viral Syndrome (ED), Hypertension (ED) Additional Instructions: You were evaluated in the emergency department today for cough which is most l ikely due to a viral infection which will resolve on its own. You are being prescribed an albuterol inhaler, and a short course of steroids take these medications as prescribed. While in the emergency department your blood pressure was noted to be elevated and you required several medications to improve her blood pressures. You are being discharged home on blood pressure medication. It is important that you follow-up with your primary care provider as soon as possible for a recheck of your blood pressure. Return to the emergency department if you develop chest pain, shortness of breath, p alpitations, dizziness or lightheadedness, fainting, worst headache of your life, changes in vision or any other concerning symptoms. Prescriptions: New losartan 50 mg tablet 50 mg PO DAILY Qty: 30 0RF prednisone 20 mg tablet 40 mg PO DAILY Qty: 10 0RF albuterol sulfate 90 mcg/actuation HFA aerosol inhaler 2 puff inhalation Q4-6H PRN (Reason: shortness of breath or wheezing) Qty: 6.7 0RF No Action ibuprofen 600 mg tablet 600 mg PO Q6H PRN (Reason: pain) Qty: 30 0RF ondansetron 4 mg tablet,disintegrating 4 mg PO Q8H PRN (Reason: nausea and vomiting) Qty: 20 0RF benzonatate [Tessalon Perles] 100 mg capsule 100 mg PO TID PRN (Reason: cough) Qty: 20 0RF amlodipine 10 mg tablet 10 mg PO DAILY Qty: 30 0RF benzonatate 100 mg capsule 100 mg PO TID PRN (Reason: cough) Qty: 10 0RF ibuprofen 800 mg tablet 800 mg PO Q8H PRN (Reason: pain) Qty: 30 0RF oxycodone 5 mg tablet 5 mg PO Q8H PRN (Reason: pain) Qty: 6 0RF Rx Instructions: Partial Fill upon patient request. Stand Alone Forms: Against Medical Advice Print Language: Georgian
[2024-02-09 21:49] LABS: IDNOW Serial# 08D9AD1C; Strep A Nucleic Acid Negative (Negative)
[2024-02-09 22:02] VITALS: BP 196/130; PULSE 89; O2SAT 98
[2024-02-09] MEDS: Albuterol Sulfate 2.5 MG, Albuterol Sulfate (0.083%) 2.5 MG 5 MG INHALE (22:05)
[2024-02-09 22:07] VITALS: PULSE 88; RESP 18; O2SAT 98
[2024-02-09 22:14] LABS: Influenza A PCR NEGATIVE (Negative); Influenza B PCR NEGATIVE (Negative); Resp Syncy Virus RNA Qual PCR NEGATIVE (Negative); SARS COV2 PCR INHOUSE NEGATIVE (Negative)
[2024-02-09 22:41] VITALS: BP 196/130
[2024-02-09] MEDS: amLODIPine Besylate 5 MG TABLET PO (22:41)
[2024-02-09] MEDS: Benzonatate 100 MG CAPSULE PO (23:59)
[2024-02-10] VITALS (7 sets, daily range): BP systolic 0–207; BP diastolic 0–128; PULSE 0–120; RESP 0–24; TEMP -17.7–37.1; O2SAT 0–100
[2024-02-10] MEDS: Acetaminophen 325 MG TABLET 975 MG PO (00:32)
[2024-02-10] MEDS: Ibuprofen 600 MG TABLET PO (00:33)
[2024-02-10] MEDS: guaiFEN/Codeine SF 200/20/10ML 10 ML LIQUID PO (00:33)
[2024-02-10] MEDS: Labetalol HCL 100 MG TABLET PO (01:12)
[2024-02-10] MEDS: amLODIPine Besylate 5 MG TABLET PO (01:12)
--- NOTE | 2024-02-10 02:19 | PC.NURSE ---
Per MD Bates to hold Labetalol as BP is now 160/79. Awaiting CT scan.
== END 2024-02-10 03:45 | disposition home or self-care (01) ==
PROVIDERS: Emergency Provider Emergency Medicine
DX: J06.9 Acute upper respiratory infection, unspecified (principal); R05.9 Cough, unspecified; I10 Essential (primary) hypertension; R51.9 Headache, unspecified; R06.02 Shortness of breath; R00.0 Tachycardia, unspecified; Z03.818 Encounter for observation for suspected exposure to other biological agents ruled out
CPT/HCPCS: 0241U; 70450; 71045; 87651; 93005; 94640; 99284; 99285

== ENCOUNTER → 2024-02-09 21:42 | Outpatient (BNV) | payer OTHER, SELFPAY | PROVIDERS: Emergency Provider Emergency Medicine; Visit Provider Internal Medicine Cardiovascular Disease | DX: R06.02 Shortness of breath (principal); R00.0 Tachycardia, unspecified | CPT/HCPCS: 93010 ==

== ENCOUNTER 2025-01-22 01:50 | Emergency (ER) | payer SELFPAY ==
[2025-01-22] VITALS (16 sets, daily range): BP systolic 178–226; BP diastolic 92–125; PULSE 89–106; RESP 14–23; TEMP 36.4–37.1; O2SAT 95–100; BMI 45.8
--- NOTE | ~2025-01-22 | CT_ITS ---
EXAMINATION: CT HEAD WITHOUT CONTRAST CLINICAL INFORMATION: HERNANDEZ, very high BP COMPARISON: March 01, 2024. TECHNIQUE: Contiguous axial imaging was performed from the skull base to vertex without intravenous administration of contrast. This CT examination was performed using dose optimization techniques as appropriate, variously including the following: *Automated exposure control *Adjustment of mA and/or kV according to patient size (this includes techniques or standardized protocols for targeted exams where dose is matched to indication/reason for exam; i.e. extremities or head) *Use of iterative reconstruction technique DLP: 637 mGy-cm FINDINGS: No acute intracranial hemorrhage, mass effect, midline shift, hydrocephalus or herniation. Sparrow-white matter differentiation is normal. Sellar/suprasellar region demonstrated no gross masses. Craniocervical junction demonstrates normal position of the cerebellar tonsils. No mass or hemorrhage in the intraconal or extraconal compartments of the orbits. Prominent parotid glands, bilaterally. Prominent nasopharynx soft tissues. Tympanic cavities and mastoid cells are aerated. No air-fluid levels in the paranasal sinuses. No acute cortical disruption in the bony calvarium or the skull base. Metallic piercing in the left preauricular. CT/CT head/brain wo IV con IMPRESSION: No acute or structural brain abnormality by CT. Stable brain. Electronically signed by: Dao Bridges MD 01/22/2025 08:39 AM EDT
[2025-01-22 02:16] LABS: MANUAL DIFF FLAG NO
[2025-01-22 02:17] LABS: Hematocrit 34.3 % (37.0-47.0); Hemoglobin 11.4 g/dl (12.0-16.0); Imm Gran Abs Auto 0.03 X10*3/uL (0.00-0.03); Imm Gran Pct Auto 0.4 % (0.0-0.4); Lymphocytes Absolute Auto 1.9 X10*3/uL (1.2-4.9); Mean Corpuscular HGB Conc 33.2 g/dl (31.0-35.0); Mean Corpuscular Hemoglobin 24.2 pg (27.0-33.0); Mean Corpuscular Volume 72.8 fL (80.0-98.0); NRBC Abs Auto 0.000 X10*3/uL (0.0-0.012); NRBC Pct Auto 0.0 /100WBC (0.0-0.2); Platelet Count 200 X10*3/uL (160-400); Red Blood Count 4.71 X10*6/uL (4.20-5.50); White Blood Count 7.8 X10*3/uL (4.8-10.8)
[2025-01-22 02:21] LABS: IDNOW Serial# 58CA691E; Strep A Nucleic Acid Negative (Negative)
[2025-01-22 02:40] LABS: Alanine Aminotransferase 13 U/L (0-31); Albumin Level 4.1 g/dL (3.5-5.0); Alkaline Phosphatase 91 U/L (39-117); Anion Gap 16 (12-20); Aspartate Amino Transferase 20 U/L (5-31); Blood Urea Nitrogen 7 mg/dL (9-16); Calcium 8.6 mg/dL (8.4-10.2); Carbon Dioxide 24 mmol/L (22-29); Chloride 101 mmol/L (96-108); Creatinine Clr Calc Pharmacy 160.3; Estimated Glomerular Filt Rate > 60; Potassium 2.7 mmol/L (3.3-5.1); Sodium 138 mmol/L (135-145); Total Protein 8.0 g/dL (6.5-8.0)
[2025-01-22 02:51] LABS: Resp Syncy Virus RNA Qual PCR NEGATIVE (Negative); SARS COV2 PCR INHOUSE NEGATIVE (Negative)
--- NOTE | 2025-01-22 05:02 | ED.URI ---
HPI - URI/Sore Throat General Chief Complaint: Upper Respiratory Symptoms Stated Complaint: throat pain Time Seen by Provider: 01/22/25 04:57 Source: patient Mode of arrival: ambulatory Limitations: no limitations History of Present Illness ED Provider: Dr. Fern Bates HPI Narrative: Patient comes to the emergency room complaining of sore throat, headache for 1 day. Patient states she has been taking Tylenol and Motrin with no relief. Patient denies any fever or chills. Patient states that it emanuel when she swallows. Denies any difficulty breathing. Related Data Previous Rx's ?Medication ?Instructions ?Recorded benzonatate 100 mg capsule 100 mg PO TID PRN cough #20 caps 06/22/20 (Erma Fair) ibuprofen 600 mg tablet 600 mg PO Q6H PRN pain #30 tabs 06/22/20 ondansetron 4 mg disintegrating 4 mg PO Q8H PRN nausea and 06/22/20 tablet vomiting #20 tabs amlodipine 10 mg tablet 10 mg PO DAILY #30 tabs 10/23/21 benzonatate 100 mg capsule 100 mg PO TID PRN cough #10 caps 10/23/21 ibuprofen 800 mg tablet 800 mg PO Q8H PRN pain #30 tabs 05/15/23 oxycodone 5 mg tablet 5 mg PO Q8H PRN pain #6 tabs 05/15/23 albuterol sulfate 90 mcg/actuation 2 puff inhalation Q4-6H PRN 02/10/24 aerosol inhaler shortness of breath or wheezing #6.7 grams losartan 50 mg tablet 50 mg PO DAILY #30 tabs 02/10/24 prednisone 20 mg tablet 40 mg (2 x 20 mg) PO DAILY #10 tabs 02/10/24 amlodipine 10 mg tablet (Norvasc) 10 mg PO DAILY #30 tabs 01/22/25 potassium chloride 20 mEq 20 meq PO DAILY #7 tabs 01/22/25 tablet,extended release (K-Tab) Allergies Allergy/AdvReac Type Severity Reaction Status Date / Time No Known Allergies Allergy Verified 01/22/25 01:55 Review of Systems Review of Systems: Constitutional : No Weight loss, No Fever, No Chills, No Night Sweats, No Fatigue, No Malaise ENT/Mouth : No Hearing loss, No Ear Pain, No Nasal Congestion, No Sinus Pain, No Hoarseness, complaining of sore throat, No Rhinorrhea, No Swallowing Difficulty Eyes: No Eye Pain, No Swelling, No Redness, No Foreign Body, No Discharge, No Vision Changes Cardiovascular : No Chest Pain, No SOB, No Dyspnea on Exertion, No Orthopnea, No Edema, No Palpitations Respiratory : No Cough, No Sputum, No Wheezing, No Smoke Exposure, No Dyspnea Gastrointestinal : No Nausea, No Vomiting, No Diarrhea, No Constipation, No abdominal Pain, No Hematochezia, No Melena Genitourinary : no irregular bleeding, No Dysuria, No Urinary Frequency, No Hematuria, No Urinary Incontinence, No Urgency, No Flank Pain, No Urinary Flow Changes, No Hesitancy Musculoskeletal : No joint pain, No Myalgias, No Joint Swelling Skin : No Skin Lesions, No rash Neuro : No Weakness, No Numbness, No Paresthesias, No Loss of Consciousness, No Dizziness, complaining of Headache Psych : No Anxiety/Panic, No Depression, No SI/HI/AH/VH, No Social Issues, Heme/Lymph: No Bruising, No Bleeding,No Lymphadenopathy Endocrine : No Polyuria, No Polydipsia, No Temperature Intolerance [facility] Past Medical History Medical History No active medical problems Social History Social History Alcohol intake: current Alcohol intake frequency: holidays/special occasions only Smoked in Last 30 Days: Yes Use of substances other than those prescribed or required for medical reasons: No Advance Directives: No Advance Directives Information Provided: Yes Patient : No Physical Exam Exam: Exam: Appearance: Alert. Oriented X3. No acute distress. Eyes: Pupils equal, round and reactive to light. ENT: Erythematous oropharynx, palatine tonsils are not swollen, uvula is midline, no obvious foramen or abscess in the soft palate or in the tonsils. Normal voice Neck: Normal inspection. Neck supple. No lymph nodes noted. No crepitus CVS: Normal heart rate and rhythm. Pulses normal. Normal S1 and S2 Respiratory: No respiratory distress. Breath sounds normal. No Wheezing. No rales Abdomen: Soft and nontender. No rigidity. No distention. Skin: Skin warm and dry. Normal skin color. Normal skin turgor. Extremities: No lower extremity edema. No Lacerations. No Rash Neuro: Oriented X 3. No motor deficit. No sensory deficit. Moving all extremities. No slurred speech. CN 2 through 12 grossly intact Psych: calm, cooperative, normal affect Vital Signs: Vital Signs: Last Vital Signs Temp 98.0 F 01/22/25 12:09 Pulse 106 H 01/22/25 13:56 Resp 17 01/22/25 13:56 BP 183/96 H 01/22/25 13:56 Pulse Ox 99 01/22/25 12:09 O2 Del Method Room Air 01/22/25 12:09 BMI result Body Mass Index 45.8 Course Course Course Narrative: Patient complaining of sore throat, headache On arrival, patient's blood pressure in the 200s, now in the high 190s. Patient denies history of hypertension. Reevaluation(s) Reevaluation #1: Patient was signed out to me at 07:[address] Bates blood pressure still elevated potassium noted we will replace potassium we will give 10 mg of Norvasc and reassess Dr Guallpa Time: 09:55 Reevaluation #2: Blood pressure better at this time 178/95 8/24 most likely has chronic HTN Time: 11:41 Reevaluation #3: She is feeling better overall blood pressure is down, she is still complaining of sore throat I examined the throat the uvula is midline there is no exacerbation strep is negative viral panel is negative white count is normal I think at this point she can be discharged home we will give a prescription for Norvasc and given the elevated blood pressure she was told to follow-up with the primary care physician call today for an appointment to recheck your blood pressure as outpatient. EKG sinus rhythm rate [address]-T changes LVH with strain Time: 12:00 Additional Reevaluation(s): Repeat potassium up trending 2.9 from 2.7, I think she can be discharged home at this point we will give a prescription for potassium tablets, blood pressure is better we do not want to drop acutely too much. Prescrition for norvasc sent to the pharmacy Medications Administered Discontinued Medications Generic Name Dose Route Start Last Admin Trade Name Freq PRN Reason Stop Dose Admin Acetaminophen 650 mg 01/22/25 10:26 01/22/25 10:29 Acetaminophen 325 Mg Tablet PO 01/22/25 10:27 650 mg ONCE ONE Administration Al Hydroxide/Mg Hydroxide 30 ml 01/22/25 11:58 01/22/25 12:03 Magnesium Hydrox/Alum Hydrox 30 Ml Oral.Susp PO 01/22/25 11:59 30 ml ONCE ONE Administration Amlodipine Besylate 10 mg 01/22/25 09:53 01/22/25 09:57 Amlodipine Besylate 10 Mg Tablet PO 01/22/25 09:54 10 mg ONCE ONE Administration Protocol Clonidine HCl 0.1 mg 01/22/25 12:09 01/22/25 12:14 Clonidine Hcl 0.1 Mg Tablet PO 01/22/25 12:10 0.1 mg ONCE ONE Administration Protocol Dexamethasone Sodium Phosphate 4 mg 01/22/25 05:02 01/22/25 05:42 Dexamethasone Sod Phosphate 4 Mg/Ml Vial IVPUSH 01/22/25 05:03 4 mg ONCE ONE Administration Labetalol HCl 100 mg 01/22/25 06:48 01/22/25 07:10 Labetalol Hcl 100 Mg Tablet PO 01/22/25 06:49 100 mg ONCE ONE Administration Protocol Lidocaine HCl 15 ml 01/22/25 05:02 01/22/25 05:41 Lidocaine Hcl Viscous 2 % 15 Ml Solution MUCOUS MEM 01/22/25 05:03 15 ml ONCE ONE Administration Lidocaine HCl 5 ml 01/22/25 11:58 01/22/25 12:03 Lidocaine Hcl Viscous 2 % 15 Ml Solution MUCOUS MEM 01/22/25 11:59 5 ml ONCE ONE Administration Losartan Potassium 50 mg 01/22/25 05:45 01/22/25 06:31 Losartan Potassium 50 Mg Tablet PO 01/22/25 05:46 50 mg ONCE ONE Administration Protocol Potassium Chloride 40 meq 01/22/25 09:51 01/22/25 09:57 Potassium Chloride Er 20 Meq Tab.Er.Prt PO 01/22/25 09:52 40 meq ONCE ONE Administration Medical Decision Making Medical Decision Making MDM Narrative: Patient was given dexamethasone and p.o. viscous lidocaine. We will be rechecking several times patient's blood pressure, patient does not have history of hypertension. Patient was given 50 mg of losartan. However, patient's blood pressure did not improved much. Patient was given 100 mg of p.o. labetalol. Patient's blood pressure in the 201/98. Patient reporting headache. CT scan of the head pending. Seems that the last time the patient was here, patient was told that she does have hypertension. Losartan 50 mg were sent to her pharmacy. However, patient's seems that she never picked up her meds. Today, patient received losartan 50 mg but has not had any significant effect on her blood pressure. Sign out given to my colleague Dr. Guallpa Differential Diagnosis Differential Diagnoses: The differential diagnosis associated with the presentation includes (Viral URI, streptococcal pharyngitis, hypertension, hypertensive urgency) Admission/Observation Consideration of admission/observation: Escalation of care including admission/observation considered (Given patient's vitals, observation was considered) Lab Data MDM Lab Attestation statement: I reviewed the patient's lab results. 01/22/25 02:08 01/22/25 12:49 Labs: Lab Results 01/22/25 01/22/25 Range/Units 02:08 12:49 WBC 7.8 (4.8-10.8) X10*3/uL RBC 4.71 (4.20-5.50) X10*6/uL Hgb 11.4 L (12.0-16.0) g/dl Hct 34.3 L (37.0-47.0) % MCV 72.8 L (80.0-98.0) fL MCH 24.2 L (27.0-33.0) pg MCHC 33.2 (31.0-35.0) g/dl RDW 18.7 H (11.0-16.0) % Plt Count 200 (160-400) X10*3/uL MPV Not Reportable Immature Gran % (Auto) 0.4 (0.0-0.4) % Neut % (Auto) 69.2 (45-73) % Lymph % (Auto) 23.8 (20-40) % [place] % (Auto) 6.2 (2-11) % Eos % (Auto) 0.1 (0-4) % Baso % (Auto) 0.3 (0-2) % Lymph # (Auto) 1.9 (1.2-4.9) X10*3/uL [place] # (Auto) 0.5 (0.1-1.2) X10*3/uL Eos # (Auto) 0.0 (0.0-0.4) X10*3/uL Baso # (Auto) 0.0 (0.0-0.2) X10*3/uL Abs Immat Gran (auto) 0.03 (0.00-0.03) X10*3/uL Absolute Neuts (auto) 5.4 (2.0-8.3) x10*3/uL Absolute Nucleated RBC 0.000 (0.0-0.012) X10*3/uL Nucleated RBC % (auto) 0.0 (0.0-0.2) /100WBC Sodium 138 138 (135-145) mmol/L Potassium 2.7 L* 2.9 L* (3.3-5.1) mmol/L Chloride 101 102 (96-108) mmol/L Carbon Dioxide 24 25 (22-29) mmol/L Anion Gap 16 14 (12-20) BUN 7 L 7 L (9-16) mg/dL Creatinine 0.67 0.59 (0.5-1.4) mg/dL Estim Creat Clear Calc 160.3 182.0 Estimated GFR > 60 > 60 Random Glucose 100 139 H (60-115) mg/dL Calcium 8.6 8.4 (8.4-10.2) mg/dL Total Bilirubin 0.8 (0.0-1.0) mg/dL AST 20 (5-31) U/L ALT 13 (0-31) U/L Alkaline Phosphatase 91 (39-117) U/L Troponin I High Sens 4.0 (<3.5-17.0) ng/L Total Protein 8.0 (6.5-8.0) g/dL Albumin 4.1 (3.5-5.0) g/dL Influenza Type A (PCR) NEGATIVE (Negative) Influenza Type B (PCR) NEGATIVE (Negative) RSV RNA Qual (PCR) NEGATIVE (Negative) SARS-CoV-2 RNA (RT-PCR) NEGATIVE (Negative) S. pyogenes GrpA ZEESHAN Negative (Negative) Critical Care Time Critical Care Time Critical Care Time: Yes Total Critical Care Time: 35 Attestation: I have personally provided critical care time. Time includes review of lab data, radiology results, discussion with consultants, and monitoring for potential decompensation. Intervention performed as documented. Discharge Plan Discharge Clinical Impression: Hypertensive urgency, Viral URI, Acute hypokalemia Patient Disposition: Home, Self-Care Instructions: Pharyngitis (ED), Hypokalemia (ED), Hypertension (ED) Additional Instructions: Follow-up with your primary care physician call today and make an appointment with the your blood pressure was really elevated, we will give you a prescription for Norvasc 10 mg but you need to follow-up with your primary care physician, also your potassium was low we sent a prescription for your for potassium tablets. Eat a lot of bananas/sweet potato they have a lot of potassium. Return to the emergency room if you worse any concern Prescriptions: New amlodipine [Norvasc] 10 mg tablet 10 mg PO DAILY Qty: 30 0RF potassium chloride [K-Tab] 20 mEq tablet extended release 20 meq PO DAILY Qty: 7 0RF No Action ibuprofen 600 mg tablet 600 mg PO Q6H PRN (Reason: pain) Qty: 30 0RF ondansetron 4 mg tablet,disintegrating 4 mg PO Q8H PRN (Reason: nausea and vomiting) Qty: 20 0RF benzonatate [Tessalon Perles] 100 mg capsule 100 mg PO TID PRN (Reason: cough) Qty: 20 0RF amlodipine 10 mg tablet 10 mg PO DAILY Qty: 30 0RF benzonatate 100 mg capsule 100 mg PO TID PRN (Reason: cough) Qty: 10 0RF ibuprofen 800 mg tablet 800 mg PO Q8H PRN (Reason: pain) Qty: 30 0RF oxycodone 5 mg tablet 5 mg PO Q8H PRN (Reason: pain) Qty: 6 0RF Rx Instructions: Partial Fill upon patient request. losartan 50 mg tablet 50 mg PO DAILY Qty: 30 0RF prednisone 20 mg tablet 40 mg PO DAILY Qty: 10 0RF albuterol sulfate 90 mcg/actuation HFA aerosol inhaler 2 puff inhalation Q4-6H PRN (Reason: shortness of breath or wheezing) Qty: 6.7 0RF Referrals: Physician,Unknown J [Primary Care Provider, Medical] - 01/24/25 Print Language: Kosovan
[2025-01-22] MEDS: Lidocaine HCl Viscous 2 % 15 ML SOLUTION MUCOUS MEM (05:41)
[2025-01-22] MEDS: Potassium Chloride ER 20 MEQ TAB.ER.PRT 40 MEQ PO ×2 (09:57→14:37)
[2025-01-22] MEDS: Magnesium Hydrox/Alum Hydrox 30 ML ORAL.SUSP PO (12:03)
[2025-01-22] MEDS: Lidocaine HCl Viscous 2 % 15 ML SOLUTION 5 ML MUCOUS MEM (12:03)
--- NOTE | 2025-01-22 12:10 | ECG_ITS ---
Test Reason : HTN Blood Pressure : */* mmHG Vent. Rate : 96 BPM Atrial Rate : 96 BPM P-R Int : 144 ms QRS Dur : 102 ms QT Int : 420 ms P-R-T Axes : 56 -14 37 degrees QTcB Int : 530 ms Normal sinus rhythm Biatrial enlargement Left ventricular hypertrophy ( R in aVL , Fracisco product ) Prolonged QT Abnormal ECG When compared with ECG of 09-Feb-2024 21:42, Premature atrial complexes are no longer Present Referred By: Clarence Guallpa Electronically Signed By: Som Benites
[2025-01-22 13:27] LABS: Anion Gap 14 (12-20); Blood Urea Nitrogen 7 mg/dL (9-16); Calcium 8.4 mg/dL (8.4-10.2); Carbon Dioxide 25 mmol/L (22-29); Chloride 102 mmol/L (96-108); Creatinine Clr Calc Pharmacy 182.0; Estimated Glomerular Filt Rate > 60; Potassium 2.9 mmol/L (3.3-5.1); Sodium 138 mmol/L (135-145)
[2025-01-22 14:17] LABS: Troponin-I High Sensitivity 4.0 ng/L (<3.5-17.0)
== END 2025-01-22 15:11 | disposition home or self-care (01) ==
PROVIDERS: Emergency Medicine; Emergency Provider Emergency Medicine
DX: I16.0 Hypertensive urgency (principal); E87.6 Hypokalemia; J06.9 Acute upper respiratory infection, unspecified; J02.9 Acute pharyngitis, unspecified; R51.9 Headache, unspecified; Z79.899 Other long term (current) drug therapy
CPT/HCPCS: 36415; 70450; 80048; 80053; 84484; 85025; 87637; 87651; 93005; 96374; 99284; 99285; J1100

== ENCOUNTER → 2025-01-22 06:50 | Outpatient (BNV) | payer SELFPAY | PROVIDERS: Emergency Provider Emergency Medicine; Visit Provider Radiology Diagnostic Radiology | DX: R51.9 Headache, unspecified (principal); R03.0 Elevated blood-pressure reading, without diagnosis of hypertension | CPT/HCPCS: 70450 ==

== ENCOUNTER → 2025-01-22 12:10 | Outpatient (BNV) | payer SELFPAY | PROVIDERS: Emergency Provider Emergency Medicine; Visit Provider Internal Medicine Cardiovascular Disease | DX: I51.7 Cardiomegaly (principal) | CPT/HCPCS: 93010 ==

== ENCOUNTER 2025-03-12 17:54 | Emergency (ER) | payer OTHER, SELFPAY ==
--- NOTE | ~2025-03-12 | CT_ITS ---
CLINICAL HISTORY: severe thigh pain, ?hamstring pain Exam: CT of left femur without contrast Comparison: None available Findings: Mild osteoarthritis of the left hip and left knee. Small effusion of the left knee. No displaced fracture of the left femur. Calcifications of the likely mild enthesopathy at imaged left-sided trochanters. Fluid and stranding is nonspecific including superficial to superficial fascia, particularly noted in the anterior anteriorly. Imaged quadriceps are unremarkable for noncontrast study. Partially imaged gluteus musculature is unremarkable for noncontrast study. Fluid and/or stranding is noted about the dorsal margin of the left hamstring musculature with proximal nodule and/or hematoma measuring 2.9 x 2.2 x 3.9 cm. Hematoma is favored by noncontrast imaging at this time. Underlying avulsion not excluded by CT. No MRI available for review at this time. Impression: 1. No acute fracture of the left femur. 2. Dorsal 3.9 cm hematoma of the proximal aspect of the imaged hand straightening of the by CT. Underlying avulsion not excluded by CT. Consider nonemergent MRI, if clinically indicated and if clinically able. 3. 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 This document has been electronically signed by: Mihir Burrows MD on 03/12/2025 21:25:37
[2025-03-12 18:31] VITALS: BP 146/96; BP 189/86; PULSE 101; PULSE 99; RESP 18; TEMP 36.8; O2SAT 96; O2SAT 98; BMI 45.4
--- NOTE | 2025-03-12 18:37 | ED_ITS ---
HPI - Fall General Chief Complaint: Fall Stated Complaint: Fell hamstring pain 04/12 Time Seen by Provider: 03/12/25 20:49 Related Data Previous Rx's ?Medication ?Instructions ?Recorded benzonatate 100 mg capsule 100 mg PO TID PRN cough #20 caps 06/22/20 (Erma Fair) ibuprofen 600 mg tablet 600 mg PO Q6H PRN pain #30 t abs 06/22/20 ondansetron 4 mg disintegrating 4 mg PO Q8H PRN nausea and 06/22/20 tablet vomiting #20 tabs amlodipine 10 mg tablet 10 mg PO DAILY #30 tabs 10/03 08/25 benzonatate 100 mg capsule 100 mg PO TID PRN cough #10 caps 10/23/21 ibuprofen 800 mg tablet 800 mg PO Q8H PRN pain #30 t abs 05/15/23 oxycodone 5 mg tablet 5 mg PO Q8H PRN pain #6 tabs 05/15/23 albuterol sulfate 90 mcg/actuation 2 puff inhalation Q 4-6H PRN 02/10/24 aerosol inhaler shortness of breath or wheez ing #6.7 grams losartan 50 mg tablet 50 mg PO DAILY #30 tabs 03/27 prednisone 20 mg tablet 40 mg (2 x 20 mg) PO DAILY # 10 tabs 02/10/24 amlodipine 10 mg tablet (Norvasc) 10 mg PO DAILY #30 t abs 01/22/25 potassium chloride 20 mEq 20 meq PO DAILY #7 tabs 01/02 08/28 tablet,extended release (K-Tab) cyclobenzaprine 10 mg tablet 10 mg PO TID PRN muscle s pasm #14 03/12/25 tabs naproxen 500 mg tablet 500 mg PO BID PRN pain #14 t abs 03/12/25 Allergies Allergy/AdvReac Type Severity Reaction Status Date / Time No Known Allergies Allergy Verified 03/12/25 18:34 [facility] Past Medical History Medical History No active medical problems Social History Social History Alcohol intake: current Alcohol intake frequency: holidays/special occasions only Advance Directives: No Advance Directives Information Provided: No Patient : No Physical Exam Exam: Exam: EXAM: Gen: Alert, awake, well appearing, well hydrated. Head: Atraumatic Eyes: Anicteric, Normal conjunctiva. Neuro: Alert. Gross movement of all extremities intact. ? Psych: Calm. Cooperative. MSK: No grossly visible deformity. Severe exquisite tenderness without objective hematoma swelling or skin break of the left distal posterior hamstring region. Limited range of motion of the left knee with a flexion-extension secondary to pain. Limited weight-bearing secondary to pain. No objective edema no bony tenderness of the femur or knee. Vital signs: See flowsheet Vital Signs: Vital Signs: Last Vital Signs Temp 98.4 F 03/12/25 22:20 Pulse 109 H 03/12/25 22:20 Resp 18 03/12/25 22:20 BP 138/96 H 03/12/25 22:20 Pulse Ox 99 03/12/25 22:20 O2 Del Method Room Air 03/12/25 22:20 BMI result Body Mass Index 45.4 Course Course Course Narrative: This is an RME: Additional HPI, ROS, PE not included below will be deferred to primary provider. RME assessment and note performed by: Belinda Garner PA-C This is a 39-year-old female who presents emergency department via EMS with c oncerns of severe left thigh pain, she is unable to lift her leg up after hyperextension injury. No bony tenderness on exam. Plan: ct femur, further ER eval needed Medications Administered Discontinued Medications Generic Name Dose Route Start Last Admin Trade Name Cristoferq PRN Reason Stop Dose Admin Acetaminophen 975 mg 03/12/25 18:40 03/12/25 18:42 Acetaminophen 325 Mg Tablet PO 03/12/25 18:41 975 mg ONCE ONE Administration Cyclobenzaprine HCl 10 mg 03/12/25 21:55 03/12/25 22:02 Cyclobenzaprine Hcl 10 Mg Tablet PO 03/12/25 21:56 10 mg ONCE ONE Administration Ketorolac Tromethamine 15 mg 03/12/25 21:55 03/12/25 22:02 Ketorolac Tromethamine 15 Mg/Ml Vial IM 03/12/25 21:56 15 mg ONCE ONE Administration Oxycodone HCl 5 mg 03/12/25 21:55 03/12/25 22:02 Oxycodone Hcl Immed Release 5 Mg Tablet PO 03/12/25 21:56 5 mg ONCE ONE Administration Medical Decision Making Medical Decision Making MDM Narrative: Medical Decision Makin-year-old female with slip and hyperextension injury of the left hamstring area no direct blow or strike no focal bony tenderness. CT report reviewed suggesting distal hamstring hematoma. Clinically the history and exam is suggestive of a soft tissue injury possibly muscular or tendinous rupture that we will need to be identified outpatient on MR. Goal at this point will be for pain control to assess her ambulation. Preliminary Favored Differential Diagnosis: Muscle strain, tenderness injury, intramuscular hematoma. among additional considered etiologies Testing Interpreted Independently: ?See below for details Radiology or Lab testing Results Reviewed: ?See below for details Consults: ?See below for details Independent Historians/External Chart Reviews: ?See below for details Social Determinants of Health Impacting MDM/Planning: ?See below for details Discharge Plan Discharge Clinical Impression: Hamstring strain Patient Disposition: Home, Self-Care Instructions: Hamstring Injury (ED) Additional Instructions: You were found to have no bony injury but a hematoma or a blood collection/contusion of the tissue in the hamstring or back of the left thigh where you are having your majority of your pain. There could be a muscular rupture as we discussed but this can not be identified by a CT and may need MRI. The reading is below please call the orthopedic department for follow up. (Radiol ogist likely meant HAMSTRING NOT HAND STRAIGHTENING) Impression: 1. No acute fracture of the left femur. 2. Dorsal 3.9 cm hematoma of the proximal aspect of the imaged hand straightening of the by CT. Underlying avulsion not excluded by CT. Consider nonemergent MRI, if clinically indicated and if clinically able. 3. 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 Prescriptions: New naproxen 500 mg tablet 500 mg PO BID PRN (Reason: pain) Qty: 14 0RF cyclobenzaprine 10 mg tablet 10 mg PO TID PRN (Reason: muscle spasm) Qty: 14 0RF No Action ibuprofen 600 mg tablet 600 mg PO Q6H PRN (Reason: pain) Qty: 30 0RF ondansetron 4 mg tablet,disintegrating 4 mg PO Q8H PRN (Reason: nausea and vomiting) Qty: 20 0RF benzonatate [Tessalon Perles] 100 mg capsule 100 mg PO TID PRN (Reason: cough) Qty: 20 0RF amlodipine 10 mg tablet 10 mg PO DAILY Qty: 30 0RF benzonatate 100 mg capsule 100 mg PO TID PRN (Reason: cough) Qty: 10 0RF ibuprofen 800 mg tablet 800 mg PO Q8H PRN (Reason: pain) Qty: 30 0RF oxycodone 5 mg tablet 5 mg PO Q8H PRN (Reason: pain) Qty: 6 0RF Rx Instructions: Partial Fill upon patient request. amlodipine [Norvasc] 10 mg tablet 10 mg PO DAILY Qty: 30 0RF potassium chloride [K-Tab] 20 mEq tablet extended release 20 meq PO DAILY Qty: 7 0RF losartan 50 mg tablet 50 mg PO DAILY Qty: 30 0RF prednisone 20 mg tablet 40 mg PO DAILY Qty: 10 0RF albuterol sulfate 90 mcg/actuation HFA aerosol inhaler 2 puff inhalation Q4-6H PRN (Reason: shortness of breath or wheezing) Qty: 6.7 0RF Referrals: [facility] [place] [Provider Group, Orthopedics] Referral Note: Impression: 1. No acute fracture of the left femur. 2. Dorsal 3.9 cm hematoma of the proximal aspect of the imaged hand straightening of the by CT. Underlying avulsion not excluded by CT. Consider nonemergent MRI, if clinically indicated and if clinically able. 3. 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 Interventions: ED Discharge Assessment Last Done: 03/12/25 22:20 Discharge Date/Time: 03/12/25 22:22 Print Language: French
[2025-03-12] MEDS: oxyCODONE HCl Immed Release 5 MG TABLET PO (22:02)
[2025-03-12 22:19] VITALS: BP 138/96; PULSE 109; RESP 18; TEMP 36.9; O2SAT 99
[2025-03-12 22:20] VITALS: BP 138/96; PULSE 109; RESP 18; TEMP 36.9; O2SAT 99
== END 2025-03-12 22:22 | disposition home or self-care (01) ==
PROVIDERS: Emergency Provider Emergency Medicine
DX: S76.912A Strain of unspecified muscles, fascia and tendons at thigh level, left thigh, initial encounter (principal); M79.605 Pain in left leg; X50.0XXA Overexertion from strenuous movement or load, initial encounter; Y93.9 Activity, unspecified; Y92.9 Unspecified place or not applicable; Y99.8 Other external cause status
CPT/HCPCS: 73700; 99284; J1885

== ENCOUNTER → 2025-03-12 18:46 | Outpatient (BNV) | payer OTHER, SELFPAY | PROVIDERS: Emergency Provider Emergency Medicine; Visit Provider Radiology Neuroradiology | DX: S70.12XA Contusion of left thigh, initial encounter (principal) | CPT/HCPCS: 73700 ==

== ENCOUNTER 2025-03-16 18:46 | Emergency (ER) | payer OTHER, SELFPAY ==
--- NOTE | ~2025-03-16 | CT_ITS ---
CLINICAL HISTORY: Pain; L Hamstring Hematoma; ? Active Extrav --- Additional Notes or Special Instructions: Iliac Crest through Distal Knee Please CT angiography left lower extremity with contrast. 3D Postprocessing. Comparison: CT/SR - LOWER EXTREMITIES FEMUR (ADULT) - 03/12/25 19:43 EDT Findings: Colonic diverticulosis visualized in the pelvis. No acute fracture. Interval increase in size of intramuscular collection in the region of the hamstring of the mid femur, measuring 8.0 x 1.8 cm. No active extravasation visualized. Patent left lower extremity arterial vasculature. IMPRESSION: 1. Compared to prior exam on 03/12/2024, mild interval increase in size of presumed hematoma collection in the region of the left hamstring. 2. Patent left lower extremity arterial vasculature without active extravasation. This document has been electronically signed by: Chanell Reis MD on 03/16/2025 23:34:42
--- NOTE | ~2025-03-16 | XR_ITS ---
CLINICAL HISTORY: pain, injury, re-evaluation 2 view pelvis Comparison: None provided Findings: No acute fracture or dislocation. Periarticular osteophyte formation at the bilateral hip joints. Soft tissues are unremarkable. IMPRESSION: 1. No acute findings. This document has been electronically signed by: See Baeza MD on 03/16/2025 20:11:35
--- NOTE | ~2025-03-16 | XR_ITS ---
CLINICAL HISTORY: pain, injury, re-evaluation 2 view left femur Comparison: None provided Findings: No fractures or dislocations. No knee effusion. No significant arthritic change. No radiopaque foreign body. IMPRESSION: 1. Normal left femur This document has been electronically signed by: See Baeza MD on 03/16/2025 20:12:07
[2025-03-16 18:50] VITALS: BP 220/127; PULSE 125; RESP 20; TEMP 36.4; O2SAT 97; BMI 47.3
--- NOTE | 2025-03-16 18:54 | ED_ITS ---
HPI - General Adult General Chief complaint: Extremity Injury, Lower Stated complaint: left thigh pain tingling/seen here on Time Seen by Provider: 03/16/25 20:53 Source: patient Mode of arrival: ambulatory Limitations: no limitations History of Present Illness ED Provider: Keagan UREÑA HPI narrative: The patient is a 39-year-old female presenting to the ED for evaluation of markedly worsening left posterior thigh pain with difficulty walking and increased pain with palpation and standing. Patient was evaluated in this ED on Monday 03/12 status post mechanical fall, at that time was diagnosed by noncontrast CT with a 3.9 cm hematoma of the proximal hamstring. An underlying avulsion is not excluded and recommendation was made for nonemergent MRI. Patient reports he contacted the orthopedic office for follow up and has an appointment scheduled for this Tuesday, however over the past 2 days she has developed markedly worsening pain now expanding into further into the distal posterior and medial thigh, today with associated numbness/paresthesias of the distal left extremity. The patient denies recurrent injury since Tuesday. The patient denies associated fever/chills, nausea, vomiting, near-syncope, syncope, or open injury. Related Data Previous Rx's ?Medication ?Instructions ?Recorded benzonatate 100 mg capsule 100 mg PO TID PRN cough #20 caps 06/22/20 (Erma Fair) ibuprofen 600 mg tablet 600 mg PO Q6H PRN pain #30 t abs 06/22/20 ondansetron 4 mg disintegrating 4 mg PO Q8H PRN nausea and 06/22/20 tablet vomiting #20 tabs amlodipine 10 mg tablet 10 mg PO DAILY #30 tabs 10/03 08/25 benzonatate 100 mg capsule 100 mg PO TID PRN cough #10 caps 10/23/21 ibuprofen 800 mg tablet 800 mg PO Q8H PRN pain #30 t abs 05/15/23 oxycodone 5 mg tablet 5 mg PO Q8H PRN pain #6 tabs 05/15/23 albuterol sulfate 90 mcg/actuation 2 puff inhalation Q 4-6H PRN 02/10/24 aerosol inhaler shortness of breath or wheez ing #6.7 grams losartan 50 mg tablet 50 mg PO DAILY #30 tabs 03/27 prednisone 20 mg tablet 40 mg (2 x 20 mg) PO DAILY # 10 tabs 02/10/24 amlodipine 10 mg tablet (Norvasc) 10 mg PO DAILY #30 t abs 01/22/25 potassium chloride 20 mEq 20 meq PO DAILY #7 tabs 01/02 08/28 tablet,extended release (K-Tab) cyclobenzaprine 10 mg tablet 10 mg PO TID PRN muscle s pasm #14 03/12/25 tabs naproxen 500 mg tablet 500 mg PO BID PRN pain #14 t abs 03/12/25 cyclobenzaprine 10 mg tablet 10 mg PO TID PRN muscle s pasm #14 03/17/25 tabs oxycodone 5 mg capsule 5 mg PO TID PRN pain #14 cap s 03/17/25 Allergies Allergy/AdvReac Type Severity Reaction Status Date / Time No Known Allergies Allergy Verified 03/16/25 18:53 Review of Systems 2 Review of Systems: Yes all other systems are reviewed and are negative PMFSH Past Medical History Medical History No active medical problems Social History Social History Alcohol intake: current Alcohol intake frequency: holidays/special occasions only Advance Directives: No Advance Directives Information Provided: No Do you have a plan to hurt others: No Plan Physical Exam ED Vital Signs: Vital Signs - 24 hr 03/16/25 18:50 03/16/25 20:55 03/16/25 21:25 Temperature 97.5 F Pulse Rate 125 H 120 H Pulse Rate [Monitor] Respiratory Rate 20 20 16 Blood Pressure 220/127 H 172/116 H Pulse Oximetry 97 100 Oxygen Delivery Method Room Air Room Air 03/16/25 21:30 03/16/25 22:34 Temperature 98.3 F Pulse Rate 104 H Pulse Rate [Monitor] 120 H Respiratory Rate 20 Blood Pressure 196/121 H Pulse Oximetry 100 Oxygen Delivery Method Room Air BMI result Body Mass Index 47.3 CONSTITUTIONAL: The patient appears morbidly obese, in obvious discomfort, otherwise non-toxic, well nourished and in no acute distress. Vital signs as documented. HEAD: Atraumatic, normocephalic. EYES: EOMs grossly intact, pupils equal, conjunctiva clear, no exudate. ENT: Nares patent, no discharge. Airway patent, no audible stridor, visible mucosa is pink and moist without noted lesions. NECK: Trachea is midline, no obvious masses or gross abnormalities. CHEST: Symmetric movement, normal appearance. LUNGS: LS present and CTAB, no w/r/r. Non-labored work of breathing. CARDIAC: Rapid but otherwise Regular Rhythm, S1/S2 appreciated, no murmurs, rubs or gallops. ABDOMEN: Abdomen soft and non-tender x4 quadrants, no palpable masses or organomegaly. : Deferred. EXTREMITIES: Limited range of motion with straight leg raise and flexion of the left hip secondary to pain, marked point tenderness to the proximal and middle 3rd of the posterior and medial left hamstring, distal CSM intact, 2+ DP/PT pulses. Normal tone. The patient moves all other extremities spontaneously without reported pain. No obvious acute injury or deformity noted. NEURO: Alert and oriented x3, CN II-XII appear grossly intact. Cerebellar Functioning grossly intact. No obvious sensory or motor deficits. Speech clear and appropriate. PSYCH: normal affect, appropriate eye contact, fluid speech, with appropriate response to questioning. No reported suicidality or homicidality. SKIN: Warm, dry, color appropriate, normal turgor. No rashes noted. Course Course Course Narrative: Rapid medical examination performed in triage by Lina Christian PA-C. Patient is a 39 year old assigned female at presenting to the emergency department with left thigh pain. Detailed physical exam and review of systems are deferred to the cardio clinician. Imaging ordered. Patient placed back in the waiting room pending room availability and results. Medications Administered Discontinued Medications Generic Name Dose Route Start Last Admin Trade Name Freq PRN Reason Stop Dose Admin Cyclobenzaprine HCl 5 mg 03/17/25 00:23 03/17/25 00:36 Cyclobenzaprine Hcl 5 Mg Tablet PO 03/17/25 00:24 5 mg ONCE ONE Administration Iohexol 100 ml 03/16/25 22:20 03/16/25 22:24 Iohexol 350 Mg/Ml 100 Ml Infus..Btl IV 03/16/25 22:21 100 ml ONCE ONE Administration Ketorolac Tromethamine 15 mg 03/16/25 20:41 03/16/25 20:45 Ketorolac Tromethamine 15 Mg/Ml Vial IM 03/16/25 20:42 15 mg ONCE ONE Administration Morphine Sulfate 4 mg 03/16/25 21:07 03/16/25 21:25 Morphine Sulfate 4 Mg/Ml Cartridge IVPUSH 03/16/25 21:08 4 mg ONCE ONE Administration Protocol Oxycodone HCl 5 mg 03/17/25 00:23 03/17/25 00:35 Oxycodone Hcl Immed Release 5 Mg Tablet PO 03/17/25 00:24 5 mg ONCE ONE Administration Medical Decision Making Medical Decision Making MDM Narrative: 9:20 PM 03/16/2025 (Romeo UREÑA): The patient is a 39-year-old female presenting to the ED for evaluation of markedly worsening left posterior thigh pain with difficulty walking and increased pain with palpation and standing. Patient was evaluated in this ED on Monday 03/12 status post mechanical fall, at that time was diagnosed by noncontrast CT with a 3.9 cm hematoma of the proximal hamstring. An underlying avulsion is not excluded and recommendation was made for nonemergent MRI. Patient reports he contacted the orthopedic office for follow up and has an appointment scheduled for this Tuesday, however over the past 2 days she has developed markedly worsening pain now expanding into further into the distal posterior and medial thigh, today with associated numbness/paresthesias of the distal left extremity. The patient denies recurrent injury since Tuesday. The patient denies associated fever/chills, nausea, vomiting, near-syncope, syncope, or open injury. In the ED patient has marked point tenderness to proximal and middle 3rd of the posterior and medial left thigh/hamstring. Distal CSM is intact, 2+ DP/PT pulses, no pedal edema. Patient has also noted to have significant hypertension and tachycardia, chart review reveals history of high normal heart rate, but not this significantly elevated. The patient's femur and pelvis x-rays are negative for fracture. The patient's presentation is concerning for possible expanding hematoma with nerve impingement. Patient will undergo basic laboratory evaluation and we will be sent for a CTA lower extremity to re-evaluate for expanding hematoma/active extravasation. 11:53 PM 03/16/2025 (Romeo UREÑA): The patient is CTA shows increased size of the previously identified hematoma in the left hamstring, now measuring 8 by 1.8 cm. There was no active extravasation noted. The increased size of the hematoma is likely the source of the patient's pain. At this time the patient's pain has improved with IV morphine, patient is currently able to rest comfortably. We will discuss CTA findings with the patient and reassess comfort, with a plan to hopefully discharge with outpatient orthopedic follow up on Tuesday. 12:24 AM 03/17/2025 (Romeo UREÑA): Patient initially responded well to IV morphine, however is now reporting pain is recurring. The patient will be treated with oral oxycodone and Flexeril, we will reassess for improvement, if successful patient will be appropriate for discharge home, if unable to control pain with p.o. medication patient may require inpatient admission for intractable pain. 12:57 AM 03/17/2025 (Romeo UREÑA): Patient reports she would prefer to go home and follow up outpatient with Orthopedics on Tuesday, advises she thinks the symptoms are manageable with medication at home. Patient will be discharged with oxycodone, Flexeril, Tylenol, and instructions to avoid NSAIDs to avoid recurrent bleeding. The patient was educated on her high blood pressure and need for antihypertensive medication. Admission/Observation Consideration of admission/observation: Escalation of care including admission/observation considered Lab Data MDM Lab Attestation statement: I reviewed the patient's lab results. 03/16/25 21:29 03/16/25 21:29 Labs: Lab Results 03/16/25 Range/Units 21:29 WBC 6.2 (4.8-10.8) X10*3/uL RBC 4.37 (4.20-5.50) X10*6/uL Hgb 10.5 L (12.0-16.0) g/dl Hct 32.5 L (37.0-47.0) % MCV 74.4 L (80.0-98.0) fL MCH 24.0 L (27.0-33.0) pg MCHC 32.3 (31.0-35.0) g/dl RDW 18.8 H (11.0-16.0) % Plt Count 230 (160-400) X10*3/uL MPV 11.1 (9.4-12.3) fL Immature Gran % (Auto) Cancelled Neut % (Auto) Cancelled Lymph % (Auto) Cancelled Hart % (Auto) Cancelled Eos % (Auto) Cancelled Baso % (Auto) Cancelled Lymph # (Auto) Cancelled Hart # (Auto) Cancelled Eos # (Auto) Cancelled Baso # (Auto) Cancelled Abs Immat Gran (auto) Cancelled Absolute Neuts (auto) Cancelled Absolute Nucleated RBC 0.000 (0.0-0.012) X10*3/uL Nucleated RBC % (auto) 0.0 (0.0-0.2) /100WBC Neutrophils % (Manual) 59 (45-73) % Band Neutrophils % 0 L (3-5) % Lymphocytes % (Manual) 34 (20-40) % Atypical Lymphs % (Man) 1 (0-6) % Monocytes % (Manual) 3 (2-11) % Eosinophils % (Manual) 2 (0-4) % Basophils % (Manual) 1 (0-2) % Abs Neuts (Manual) 3.7 (2.0-8.3) X10*3/uL Lymphocytes # (Manual) 2.1 (1.2-4.9) X10*3/uL Atyp Lymphs # (Manual) 0.1 x10*3/uL Monocytes # (Manual) 0.2 (0.1-1.2) X10*3/uL Eosinophils # (Manual) 0.1 (0.0-0.4) X10*3/uL Basophils # (Manual) 0.1 (0.0-0.2) X10*3/uL Platelet Estimate NORMAL (NORMAL) Plt Morphology Comment NORMAL RBC Morphology NOTED Basophilic Stippling 1+ (0-2) /OIF Macrocytosis 1+ (5-14) /OIF Sodium 141 (135-145) mmol/L Potassium 4.0 D (3.3-5.1) mmol/L Chloride 105 (96-108) mmol/L Carbon Dioxide 24 (22-29) mmol/L Anion Gap 16 (12-20) BUN 9 (9-16) mg/dL Creatinine 0.70 (0.5-1.4) mg/dL Estim Creat Clear Calc 156.3 Estimated GFR > 60 Random Glucose 104 (60-115) mg/dL Calcium 8.6 (8.4-10.2) mg/dL Total Bilirubin 0.2 (0.0-1.0) mg/dL AST 45 H (5-31) U/L ALT 31 (0-31) U/L Alkaline Phosphatase 89 (39-117) U/L Total Protein 7.7 (6.5-8.0) g/dL Albumin 3.9 (3.5-5.0) g/dL Independent Interpretation I performed an independent interpretation of an: EKG (EKG shows sinus tachycardia with a rate of 117, with frequent PACs, no evidence of acute ischemia, no other ectopy. QTC 493. Compared to previous on 01/22/2025, rate has increased, and PACs are new, no other significant morphology changes.) Radiology Impression Discussion of test interpretation with radiology: I have reviewed the radiologist's reading. Radiologist Impression: CLINICAL HISTORY: pain, injury, re-evaluation 2 view left femur Comparison: None provided Findings: No fractures or dislocations. No knee effusion. No significant arthritic change. No radiopaque foreign body. IMPRESSION: 1. Normal left femur This document has been electronically signed by: See Baeza MD on 03/16/2025 20:12:07 CLINICAL HISTORY: pain, injury, re-evaluation 2 view pelvis Comparison: None provided Findings: No acute fracture or dislocation. Periarticular osteophyte formation at the bilateral hip joints. Soft tissues are unremarkable. IMPRESSION: 1. No acute findings. This document has been electronically signed by: See Baeza MD on 03/16/2025 20:11:35 CT angiography left lower extremity with contrast. 3D Postprocessing. Comparison: CT/SR - LOWER EXTREMITIES FEMUR (ADULT) - 03/12/25 19:43 EDT Findings: Colonic diverticulosis visualized in the pelvis. No acute fracture. Interval increase in size of intramuscular collection in the region of the hamstring of the mid femur, measuring 8.0 x 1.8 cm. No active extravasation visualized. Patent left lower extremity arterial vasculature. IMPRESSION: 1. Compared to prior exam on 03/12/2024, mild interval increase in size of presumed hematoma collection in the region of the left hamstring. 2. Patent left lower extremity arterial vasculature without active extravasation. This document has been electronically signed by: Chanell Reis MD on 03/16/2025 23:34:42 External Record Review External record reviewed: Outpatient record and Prior outpatient labs Prescription Management I considered prescription management with: Pain Medication Discharge Plan Discharge Clinical Impression: Hematoma of muscle Patient Disposition: Home, Self-Care Instructions: Hematoma (ED) Additional Instructions: Thank you for choosing [facility] Emergency Department for your care today. Your laboratory evaluation today shows no evidence of significant anemia, or other acute emergent process. Your CTA shows that your hamstring hematoma, which may have occurred secondary to a partial tear of the muscle, has doubled in size from 4 cm to [address] shows no evidence of active continued bleeding. As such there is no indication for admission to the hospital or continued ED observation, and it is safe to discharge you home. It is extremely important that he follow up with the orthopedic office at your scheduled appointment on Tuesday. You may take Tylenol 1000mg every 6 hours as needed for additional pain. Please do not take any ibuprofen, Aleve, or other NSAIDs as this may increase your risk for recurrent bleeding into the hematoma. Please rest the injured area, and apply ice for 20 minutes every hour. Please stay well hydrated and get plenty of rest. As a part of your care plan, you have also been prescribed an opiate based pain medication call oxycodone. Please take this medication only for severe pain that is not relieved by Tylenol. Opiate based medications have a high risk of unintentional addiction and abuse. Take this medication only as directed and only if absolutely necessary. This medicine can make you drowsy, you are not allowed to drive, operate heavy machinery, or be the sole care provider for children while taking this medication. As a part of your care plan, you have also been prescribed a muscle relaxer called Flexeril. Please take this medication only for severe pain or spasm that is not relieved by Tylenol. Muscle relaxer medications can carry high risk of unintentional addiction and abuse. Take this medication only as directed and only if absolutely necessary. This medicine can make you drowsy, you are not allowed to drive, operate heavy machinery, or be the sole care provider for children while taking this medication. Your blood pressure today was very high, and may benefit from high blood pressure medication. Please also follow up with your primary care physician for re-evaluation, additional management of your symptoms, and continued preventative care. If you do not have a primary care physician, please call the [facility] at [phone] to establish a new primary care physician. While waiting to establish your new primary care physician, you can call our [facility] at [phone] for non-emergency needs. Please return to the emergency department if you develop a severe or sudden change in your symptoms, a fever over 100.4 that does not improve with Tylenol or Ibuprofen, recurrent vomiting, or any other new or worsening symptoms or concerns. Prescriptions: New cyclobenzaprine 10 mg tablet 10 mg PO TID PRN (Reason: muscle spasm) Qty: 14 0RF oxycodone 5 mg capsule 5 mg PO TID PRN (Reason: pain) Qty: 14 0RF Rx Instructions: Partial Fill upon patient request. No Action ibuprofen 600 mg tablet 600 mg PO Q6H PRN (Reason: pain) Qty: 30 0RF ondansetron 4 mg tablet,disintegrating 4 mg PO Q8H PRN (Reason: nausea and vomiting) Qty: 20 0RF benzonatate [Tessalon Perles] 100 mg capsule 100 mg PO TID PRN (Reason: cough) Qty: 20 0RF amlodipine 10 mg tablet 10 mg PO DAILY Qty: 30 0RF benzonatate 100 mg capsule 100 mg PO TID PRN (Reason: cough) Qty: 10 0RF ibuprofen 800 mg tablet 800 mg PO Q8H PRN (Reason: pain) Qty: 30 0RF oxycodone 5 mg tablet 5 mg PO Q8H PRN (Reason: pain) Qty: 6 0RF Rx Instructions: Partial Fill upon patient request. amlodipine [Norvasc] 10 mg tablet 10 mg PO DAILY Qty: 30 0RF potassium chloride [K-Tab] 20 mEq tablet extended release 20 meq PO DAILY Qty: 7 0RF naproxen 500 mg tablet 500 mg PO BID PRN (Reason: pain) Qty: 14 0RF cyclobenzaprine 10 mg tablet 10 mg PO TID PRN (Reason: muscle spasm) Qty: 14 0RF losartan 50 mg tablet 50 mg PO DAILY Qty: 30 0RF prednisone 20 mg tablet 40 mg PO DAILY Qty: 10 0RF albuterol sulfate 90 mcg/actuation HFA aerosol inhaler 2 puff inhalation Q4-6H PRN (Reason: shortness of breath or wheezing) Qty: 6.7 0RF Referrals: [facility] [Primary Care Provider, Medical] Clinical Impression: Hematoma of muscle Print Language: Norwegian
[2025-03-16 20:55] VITALS: BP 172/116; PULSE 120; RESP 20; O2SAT 100
--- NOTE | 2025-03-16 20:56 | ECG_ITS ---
Test Reason : TACHYCARDIA Blood Pressure : */* mmHG Vent. Rate : 117 BPM Atrial Rate : 117 BPM P-R Int : 144 ms QRS Dur : 94 ms QT Int : 354 ms P-R-T Axes : 63 -9 46 degrees QTcB Int : 493 ms Sinus tachycardia with Premature atrial complexes Biatrial enlargement Left ventricular hypertrophy ( Blackstone product ) Abnormal ECG When compared with ECG of 22-Jan-2025 12:34, Premature atrial complexes are now Present Referred By: Generic ED Physician Electronically Signed By: ANATOLIY BORREGO MD
--- NOTE | 2025-03-16 21:07 | PC.NURSE ---
Assumed care of pt. presents with a fall x5 days ago, pt states that she fell on a hard surface, no head-strike, no blood thinners, pt is c/o pain to left lower extremity, pt was recently seen in ED, aaox4,
[2025-03-16 21:25] VITALS: RESP 16
[2025-03-16 21:30] VITALS: PULSE 120
[2025-03-16 21:40] LABS: Hematocrit 32.5 % (37.0-47.0); Hemoglobin 10.5 g/dl (12.0-16.0); Mean Corpuscular HGB Conc 32.3 g/dl (31.0-35.0); Mean Corpuscular Hemoglobin 24.0 pg (27.0-33.0); Mean Corpuscular Volume 74.4 fL (80.0-98.0); NRBC Abs Auto 0.000 X10*3/uL (0.0-0.012); NRBC Pct Auto 0.0 /100WBC (0.0-0.2); PLT CLUMP 1; Red Blood Count 4.37 X10*6/uL (4.20-5.50)
[2025-03-16 21:41] LABS: WBC ABN SCTR FOR CBC 1; White Blood Count 6.2 X10*3/uL (4.8-10.8)
[2025-03-16 21:49] LABS: Alanine Aminotransferase 31 U/L (0-31); Albumin Level 3.9 g/dL (3.5-5.0); Alkaline Phosphatase 89 U/L (39-117); Anion Gap 16 (12-20); Aspartate Amino Transferase 45 U/L (5-31); Blood Urea Nitrogen 9 mg/dL (9-16); Calcium 8.6 mg/dL (8.4-10.2); Carbon Dioxide 24 mmol/L (22-29); Chloride 105 mmol/L (96-108); Creatinine Clr Calc Pharmacy 156.3; Estimated Glomerular Filt Rate > 60; Potassium 4.0 mmol/L (3.3-5.1); Sodium 141 mmol/L (135-145); Total Protein 7.7 g/dL (6.5-8.0)
[2025-03-16 22:03] LABS: Atypical Lymph Absolute Manual 0.1 x10*3/uL; Atypical Lymphs Percent Manual 1 % (0-6); Basophils Abs Manual 0.1 X10*3/uL (0.0-0.2); Basophils Percent Manual 1 % (0-2); Eosinophils Absolute Manual 0.1 X10*3/uL (0.0-0.4); Eosinophils Percent Manual 2 % (0-4); Lymphocytes Absolute Manual 2.1 X10*3/uL (1.2-4.9); Lymphocytes Percent Manual 34 % (20-40); Monocytes Absolute Manual 0.2 X10*3/uL (0.1-1.2); Monocytes Percent Manual 3 % (2-11); Neutrophils Percent Manual 59 % (45-73)
[2025-03-16 22:04] LABS: Macrocytosis 1+ (5-14) /OIF; RBC Morphology NOTED
[2025-03-16 22:05] LABS: Basophilic Stippling 1+ (0-2) /OIF
[2025-03-16 22:06] LABS: Band Neutrophils Percent 0 % (3-5); Neutrophils Absolute Manual 3.7 X10*3/uL (2.0-8.3)
[2025-03-16 22:07] LABS: Platelet Count 230 X10*3/uL (160-400)
[2025-03-16] MEDS: iohexoL 350 MG/ML 100 ML INFUS..BTL IV (22:24)
[2025-03-16 22:34] VITALS: BP 196/121; PULSE 104; RESP 20; TEMP 36.8; O2SAT 100
[2025-03-17] MEDS: oxyCODONE HCl Immed Release 5 MG TABLET PO (00:35)
[2025-03-17 01:15] VITALS: BP 177/100; PULSE 98; RESP 16; TEMP 37.1; O2SAT 99
== END 2025-03-17 01:19 | disposition home or self-care (01) ==
PROVIDERS: Physician Assistant; Emergency Provider Emergency Medicine
DX: S70.12XA Contusion of left thigh, initial encounter (principal); W19.XXXA Unspecified fall, initial encounter; Y93.9 Activity, unspecified; Y92.9 Unspecified place or not applicable; Y99.9 Unspecified external cause status; R00.0 Tachycardia, unspecified; M79.652 Pain in left thigh
CPT/HCPCS: 36415; 72170; 73552; 73706; 80053; 85007; 85027; 93005; 96372; 96374; 99285; J1885; J2270; Q9967

== ENCOUNTER → 2025-03-16 18:56 | Outpatient (BNV) | payer MEDICAID, SELFPAY | PROVIDERS: Emergency Provider Emergency Medicine; Visit Provider Radiology Diagnostic Radiology | DX: M79.652 Pain in left thigh (principal); M25.751 Osteophyte, right hip; M25.762 Osteophyte, left knee | CPT/HCPCS: 72170; 73552 ==

== ENCOUNTER → 2025-03-16 20:56 | Outpatient (BNV) | payer MEDICAID, SELFPAY | PROVIDERS: Emergency Provider Emergency Medicine; Visit Provider Internal Medicine Cardiovascular Disease | DX: I49.1 Atrial premature depolarization (principal); I51.7 Cardiomegaly; R00.0 Tachycardia, unspecified | CPT/HCPCS: 93010 ==